=== PATIENT | female | born 1950 | race Caucasian/White ===

== ENCOUNTER 2018-05-08 10:49 | Inpatient (IN) | payer OTHER ==
--- NOTE | 2018-05-08 10:54 | PDOC ---
History of Present Illness <Tanja Richards - Last Filed: 05/08/18 14:25> - General History Source: Patient Exam Limitations: No Limitations - History of Present Illness Initial Comments: 05/08/18 11:23 67y F hx of htn, copd (uses o2 at home when needed), pulm nodules, sp nephrectomy, pulm fibrosis <?>, presents with complaint of sore throat and R sided chest pain x 5 days. Pt notes she had increased sore throat since tues, and deneis any fevers, or coughs, but will clear her throat for her soare throat. No n/v, diaprhoesis. pt does endorse intermitteht R sided chest pain that seems to be worse at night and worse when you push on it. last episode was last night. no new sob but pt states she has chronic sob, that is unchanged from baseline. Uses o2 when needed. pt denies any sick contacts or recent travel. pt dnies any abd pain, new back pain, headache, vision changes, numbness/ tingling/weakness. pt denies any runny nose, sneezing, body aches. cp is not worse with exertion. pt currently not in pain. PMD: Eloisa Miller Pulm: Tammi pt angi any drug use <Juan Mclean - Last Filed: 05/08/18 15:29> - General Chief Complaint: Sore Throat Stated Complaint: SORE THROAT & RIGHT CHEST PAIN Time Seen by Provider: 05/08/18 10:52 Past History <Tanja Richards - Last Filed: 05/08/18 14:25> - Past Medical History Cardiac Disorders: Yes (MURMUR) COPD: Yes HTN: Yes Kidney Stones: Yes - Surgical History Cholecystectomy: Yes - Suicide/Smoking/Psychosocial Hx Smoking Status: No Smoking History: Never smoked Have you smoked in the past 12 months: No Number of Cigarettes Smoked Daily: 0 Hx Alcohol Use: No Drug/Substance Use Hx: No Substance Use Type: None Hx Substance Use Treatment: No <Juan Mclean - Last Filed: 05/08/18 15:29> - Past Medical History Allergies/Adverse Reactions: Allergies Allergy/AdvReac Type Severity Reaction Status Date / Time No Known Allergies Allergy Verified 05/08/18 11:28 Home Medications: Ambulatory Orders Levothyroxine [Synthroid -] 88 mcg PO DAILY 08/10/12 Montelukast Na [Singulair -] 10 mg PO HS 08/10/12 Amlodipine Besylate [Norvasc -] 5 mg PO DAILY 05/08/18 Cetirizine HCl [Zyrtec -] 10 mg PO DAILY PRN 05/08/18 Dexlansoprazole [Dexilant] 60 mg PO DAILY 05/08/18 Famotidine [Pepcid] 20 mg PO DAILY 05/08/18 Gabapentin 600 mg PO BID 05/08/18 Meclizine HCl [Antivert -] 25 mg PO TID PRN 05/08/18 Mirabegron [Myrbetriq] 50 mg PO DAILY 05/08/18 Review of Systems - Review of Systems Able to Perform ROS?: Yes Comments:: 05/08/18 11:26 Constitutional - no reported Fever, Chills, HEENT: + sore throat no reported vision changes, Respiratory: no reported cough, sob, hemoptysis Cardiac: +chest pain, no reported palpitations, light headedness, leg swelling Abd/GI: no reported abd pain, nausea, vomiting, blood per rectum, melena, diarrhea : no reported dysuria, frequency, discharge Musculskelatal - no reported back pain, joint swelling skin - no reported bruising, erythema, rash neurological: no reported headache, numbness, focal weakness, tingling, ataxia, hematologic: no reported easy bruising, easy bleeding <Juan Mclean - Last Filed: 05/08/18 15:29> *Physical Exam - Vital Signs Last Vital Signs Temp Pulse Resp BP Pulse Ox 100.0 F H 89 22 115/79 93 L 05/08/18 14:00 05/08/18 14:00 05/08/18 14:00 05/08/18 14:00 05/08/18 14:00 <Tanja Richards - Last Filed: 05/08/18 14:25> - Physical Exam Comments: 05/08/18 11:27 GENERAL: The patient is awake, alert, and fully oriented, Nontoxic - in no acute distress. HEAD: Normocephalic, atraumatic. EYES: extraocular movements intact, sclera anicteric, conjunctiva clear. ENT: Normal voice, Moist mucous membranes. NECK: Normal range of motion, supple LUNGS/CHEST: Rales in the R lung, clear left lung, +reproducible chest pain on R chest HEART: Regular rate and rhythm, normal S1 and S2 without murmur, rub or gallop. ABDOMEN: Soft, nontender, No guarding, no rebound. No CVA tenderness EXTREMITIES: Normal range of motion, no edema. NEUROLOGICAL: No facial assymetry, Normal speech, PSYCH: Normal mood, normal affect. SKIN: Warm, Dry, normal turgor, <VinayJuan - Last Filed: 05/08/18 15:29> Heart Score/ECG Review - ECG Impressions Comment:: 05/08/18 12:09 Twelve-lead EKG was performed and reviewed by me. There is normal sinus rhythm with a normal rate. Rate of 82 Left anterior fascicular block Normal R wave progression no ST changes suggestive of acute ischemia <Juan Mclean - Last Filed: 05/08/18 15:29> ED Treatment Course - LABORATORY CBC & Chemistry Diagram: 05/08/18 12:30 05/08/18 12:30 - ADDITIONAL ORDERS Additional order review: Laboratory Results 05/08/18 05/08/18 05/08/18 12:30 12:30 12:30 PT with INR 13.9 H INR 1.25 H PTT (Actin FS) 23.9 L VBG pH 7.39 POC VBG pCO2 39.9 POC VBG pO2 22.1 L Mixed VBG HCO3 24.1 Sodium Potassium Chloride Carbon Dioxide Anion Gap BUN Creatinine Creat Clearance w eGFR Random Glucose Lactic Acid 1.8 Calcium Total Bilirubin AST ALT Alkaline Phosphatase Creatine Kinase Troponin I Total Protein Albumin 05/08/18 05/08/18 12:30 12:30 PT with INR INR PTT (Actin FS) VBG pH POC VBG pCO2 POC VBG pO2 Mixed VBG HCO3 Sodium 136 Potassium 4.2 Chloride 104 Carbon Dioxide 24 Anion Gap 8 BUN 14 Creatinine 1.1 Creat Clearance w eGFR 49.69 Random Glucose 96 Lactic Acid Calcium 8.8 Total Bilirubin 1.0 AST 18 ALT 11 Alkaline Phosphatase 84 Creatine Kinase 42 Troponin I < 0.03 Total Protein 6.6 Albumin 3.0 L 05/08/18 11:22 Group A Strep Rapid Antigen - Final Throat 05/08/18 12:30 RBC 4.53 MCV 83.2 MCHC 31.6 L RDW 16.9 H MPV 9.4 Neutrophils % 64.6 D Lymphocytes % 23.0 D Monocytes % 11.4 H Eosinophils % 0.6 D Basophils % 0.4 - Medications Given in the ED: ED Medications Discontinued Medications Generic Name Dose Route Start Last Admin Trade Name Cynthia PRN Reason Stop Dose Admin Acetaminophen 650 mg 05/08/18 13:59 05/08/18 14:00 Tylenol - PO 05/08/18 14:00 650 mg ONCE ONE Administration Azithromycin 500 mg/ Dextrose 250 mls @ 250 mls/hr 05/08/18 12:13 05/08/18 13 :30 IVPB 05/08/18 13:12 250 mls/hr ONCE ONE Administration Ceftriaxone Sodium 1 gm/ 50 mls @ 100 mls/hr 05/08/18 12:13 05/08/18 12:45 Dextrose IVPB 05/08/18 12:42 100 mls/hr ONCE ONE Administration <Tanja Richards - Last Filed: 05/08/18 14:25> - LABORATORY CBC & Chemistry Diagram: 05/08/18 12:30 05/08/18 12:30 <Juan Mclean - Last Filed: 05/08/18 15:29> Medical Decision Making - Medical Decision Making Case discussed with Dr. Triplett at 14:24. <Tanja Richards - Last Filed: 05/08/18 14:25> - Medical Decision Making 05/08/18 11:28 ddx viral vs strep pharyngitis, will send rapid strep cp - will r/o acs, pna, possible costochondritis will ck ekg, cxr, trops, labs 05/08/18 12:12 pt noted febrile here to 100.7 cxr noted for R perihiular infiltrates, her cxr 3 years ago was clear suspect pna - pt vitals also noted febrile - sepsis orderset obtained 05/08/18 14:28 lab reviewed - unremarkable will admit for further management of her pna case dw. dr. Triplett - states he doesnt cover ortega requests hospitalist service hospitalist service notified via [employer] 05/08/18 15:26 case dw. PRINCESS King agree with admission for further management stable for med surg Case discussed in detail with admitting physician including history, physical exam and ancillary studies. Admitting physician has assumed care for the patient, will follow all pending diagnostics and will complete the evaluation and treatment. <Juan Mclean - Last Filed: 05/08/18 15:29> *DC/Admit/Observation/Transfer - Attestations Scribe Attestion: Documentation prepared by Tanja Richards, acting as medical support specialist for Juan Mclean MD. <Tanja Richards - Last Filed: 05/08/18 14:25> - Discharge Dispostion Decision to Admit order: Yes <Juan Mclean - Last Filed: 05/08/18 15:29> Diagnosis at time of Disposition: Pneumonia Qualifiers: Pneumonia type: due to unspecified organism Laterality: right Lung location: unspecified part of lung Qualified Code(s): J18.9 - Pneumonia, unspecified organism - Discharge Dispostion Condition at time of disposition: Good - Referrals Referrals: Eloisa Miller MD [Primary Care Provider] -
[2018-05-08] MEDS ORDERED: AZITHROMYCIN IVPB 500 MG in DEXTROSE 5%-WATER - 250 ML IVPB ONE (12:13)
[2018-05-08] MEDS ORDERED: CEFTRIAXONE 1 GM in DEXTROSE 5%-WATER - 50 ML IVPB ONE (12:13)
[2018-05-08] MEDS ORDERED: cefTRIAXone SODIUM 1 GM VIAL ONE (12:41)
[2018-05-08] MEDS ORDERED: AZITHROMYCIN 500 MG VIAL IVPB ONE (12:41)
[2018-05-08 13:19] LABS: ALK PHOS 84 U/L (32-92); ANION GAP 8 (8-16); BLOOD UREA NITROGEN 14 mg/dl (7-18); CALCIUM 8.8 mg/dl (8.4-10.2); CHLORIDE 104 mmol/L (98-107); CO2 24 mmol/L (22-28); CREATININE 1.1 mg/dl (0.6-1.3); GLUCOSE,RANDOM 96 mg/dl (74-106); POTASSIUM 4.2 mmol/L (3.5-5.1); SGOT/AST 18 U/L (10-42); SGPT/ALT 11 U/L (10-40); SODIUM 136 mmol/L (136-145); TOT PROT 6.6 g/dl (6.4-8.3)
[2018-05-08 13:36] LABS: ACTIVATED PTT 23.9 SECONDS (25.2-36.5)
[2018-05-08 13:41] LABS: INR 1.25 (0.82-1.09); PROTHROMBIN TIME (PATIENT) 13.9 SEC (10.2-13.0)
[2018-05-08 13:50] LABS: BASO % 0.4 % (0-2.0); EOS % 0.6 % (0-4.5); HEMATOCRIT 37.7 % (32.4-45.2); HEMOGLOBIN 11.9 GM/dL (10.7-15.3); MCH 26.3 pg (25.7-33.7); MCHC 31.6 g/dl (32.0-36.0); MEAN CELL VOLUME 83.2 fl (80-96); MEAN PLT VOLUME 9.4 fl (7.5-11.1); MONO % 11.4 % (3.8-10.2); NEUT % 64.6 % (42.8-82.8); PLATELET COUNT 269 K/MM3 (134-434); RBC 4.53 M/mm3 (3.60-5.2); RDW 16.9 % (11.6-15.6); WHITE BLOOD COUNT 9.3 K/mm3 (4.0-10.0)
[2018-05-08 13:56] LABS: VENOUS PH 7.39 (7.32-7.42)
[2018-05-08 13:57] LABS: VENOUS PC02 39.9 mmHg (38-52); VENOUS PO2 22.1 mmHg (28-48)
[2018-05-08] MEDS ORDERED: ACETAMINOPHEN 325 MG TABLET (FP) PO ONE (13:59)
[2018-05-08] MEDS ORDERED: ACETAMINOPHEN 325 MG TABLET (FP) ONE (14:00)
--- NOTE | 2018-05-08 15:27 | HP ---
CHIEF COMPLAINT: Sore throat PCP: Dr. Miller Pulmonary: Dr. Cadena HISTORY OF PRESENT ILLNESS: This is a 67-year-old female with HTN, COPD (on home O2 prn, infrequently), pulmonary nodules, pulmonary fibrosis, hypothyroidism, and nephrectomy at [facility] 2005 (for "suspicious lesions") who presented to the ED with five days of subjective fever, sore throat, and right- sided chest pain. ER course was notable for: (1) T 100.7 and SpO2 87% on RA per verbal report from ER MD (2) CXR: Patchy right-sided infiltrate (3) Rapid strep negative (4) EKG SR with PACs, 82bpm; trop neg x 1 Recent Travel: None PAST MEDICAL HISTORY: As above PAST SURGICAL HISTORY: Nephrectomy, cholecystectomy, tubal ligation, gastric bypass, abdominoplasty Social History: Not working. Lives with and daughter. From , [place]. Smoking: Never smoker, reports significant second-hand smoke from and her parents Alcohol: None Drugs: None Family History: Non-contributory to this admission Allergies No Known Allergies Allergy (Verified 05/08/18 11:28) HOME MEDICATIONS: Home Medications Medication Instructions Recorded Levothyroxine [Synthroid -] 88 mcg PO DAILY 08/10/12 Montelukast Na [Singulair -] 10 mg PO HS 08/10/12 Amlodipine Besylate [Norvasc -] 5 mg PO DAILY 05/08/18 Cetirizine HCl [Zyrtec -] 10 mg PO DAILY PRN 05/08/18 Dexlansoprazole [Dexilant] 60 mg PO DAILY 05/08/18 Famotidine [Pepcid] 20 mg PO DAILY 05/08/18 Gabapentin 600 mg PO BID 05/08/18 Meclizine HCl [Antivert -] 25 mg PO TID PRN 05/08/18 Mirabegron [Myrbetriq] 50 mg PO DAILY 05/08/18 REVIEW OF SYSTEMS CONSTITUTIONAL: Subjective fever, malaise Absent: fever, chills, diaphoresis, generalized weakness, malaise, loss of appetite, weight change HEENT: Throat pain Absent: rhinorrhea, nasal congestion, throat swelling, difficulty swallowing, mouth swelling, ear pain, eye pain, visual changes CARDIOVASCULAR: Right-sided chest pain with coughing or deep breathing, none at rest. Absent: syncope, palpitations, irregular heart rate, lightheadedness, peripheral edema RESPIRATORY: Absent: cough, shortness of breath, dyspnea with exertion, orthopnea, wheezing, stridor, hemoptysis GASTROINTESTINAL: Absent: abdominal pain, abdominal distension, nausea, vomiting, diarrhea, constipation, melena, hematochezia GENITOURINARY: Absent: dysuria, frequency, urgency, hesitancy, hematuria, flank pain, genital pain MUSCULOSKELETAL: Absent: myalgia, arthralgia, joint swelling, back pain, neck pain SKIN: Absent: rash, itching, pallor HEMATOLOGIC/IMMUNOLOGIC: Absent: easy bleeding, easy bruising, lymphadenopathy, frequent infections ENDOCRINE: Absent: unexplained weight gain, unexplained weight loss, heat intolerance, cold intolerance NEUROLOGIC: Absent: headache, focal weakness or paresthesias, dizziness, unsteady gait, seizure, mental status changes, bladder or bowel incontinence PSYCHIATRIC: Absent: anxiety, depression, suicidal or homicidal ideation, hallucinations. PHYSICAL EXAMINATION Vital Signs - 24 hr 05/08/18 05/08/18 05/08/18 10:50 12:10 14:00 Temperature 100.7 F H 100.0 F H Pulse Rate 90 Pulse Rate [ 88 89 Apical] Respiratory 22 21 22 Rate Blood Pressure 116/80 Blood Pressure 116/67 115/79 [Right Arm] O2 Sat by Pulse 95 94 L 93 L Oximetry (%) 05/08/18 14:30 Temperature Pulse Rate Pulse Rate [ 91 H Apical] Respiratory 23 Rate Blood Pressure Blood Pressure 113/72 [Right Arm] O2 Sat by Pulse 95 Oximetry (%) GENERAL: Awake, alert, and fully oriented, in no acute distress. HEAD: Normal with no signs of trauma. EYES: Pupils equal, round and reactive to light, extraocular movements intact, sclera anicteric, conjunctiva clear. No lid lag. EARS, NOSE, THROAT: Ears normal, nares patent, oropharynx clear without exudates. Moist mucous membranes. NECK: Normal range of motion, supple without lymphadenopathy, JVD, or masses. LUNGS: Breath sounds diminished right base. No wheezes, and no crackles. No accessory muscle use. HEART: Irregular rhythm, normal S1 and S2 without murmur, rub or gallop. ABDOMEN: Soft, nontender, not distended, normoactive bowel sounds, no guarding, no rebound, no masses. No hepatomegaly or splenomegaly. MUSCULOSKELETAL: Normal range of motion at all joints. No bony deformities or tenderness. No CVA tenderness. UPPER EXTREMITIES: 2+ pulses, warm, well-perfused. No cyanosis. No clubbing. No peripheral edema. LOWER EXTREMITIES: 2+ pulses, warm, well-perfused. No calf tenderness. No peripheral edema. NEUROLOGICAL: Cranial nerves II-XII intact. Normal speech. Normal gait. PSYCHIATRIC: Cooperative. Good eye contact. Appropriate mood and affect. SKIN: Warm, dry, normal turgor, no rashes or lesions noted, normal capillary refill. Laboratory Results - last 24 hr 05/08/18 05/08/18 05/08/18 12:30 12:30 12:30 WBC 9.3 D RBC 4.53 Hgb 11.9 Hct 37.7 MCV 83.2 MCH 26.3 MCHC 31.6 L RDW 16.9 H Plt Count 269 D MPV 9.4 Absolute Neuts (auto) 6.0 Neutrophils % 64.6 D Lymphocytes % 23.0 D Monocytes % 11.4 H Eosinophils % 0.6 D Basophils % 0.4 Nucleated RBC % 0 PT with INR INR PTT (Actin FS) VBG pH POC VBG pCO2 POC VBG pO2 Mixed VBG HCO3 Sodium 136 Potassium 4.2 Chloride 104 Carbon Dioxide 24 Anion Gap 8 BUN 14 Creatinine 1.1 Creat Clearance w eGFR 49.69 Random Glucose 96 Lactic Acid Calcium 8.8 Total Bilirubin 1.0 AST 18 ALT 11 Alkaline Phosphatase 84 Creatine Kinase 42 Troponin I < 0.03 Total Protein 6.6 Albumin 3.0 L 05/08/18 05/08/18 05/08/18 12:30 12:30 12:30 WBC RBC Hgb Hct MCV MCH MCHC RDW Plt Count MPV Absolute Neuts (auto) Neutrophils % Lymphocytes % Monocytes % Eosinophils % Basophils % Nucleated RBC % PT with INR 13.9 H INR 1.25 H PTT (Actin FS) 23.9 L VBG pH 7.39 POC VBG pCO2 39.9 POC VBG pO2 22.1 L Mixed VBG HCO3 24.1 Sodium Potassium Chloride Carbon Dioxide Anion Gap BUN Creatinine Creat Clearance w eGFR Random Glucose Lactic Acid 1.8 Calcium Total Bilirubin AST ALT Alkaline Phosphatase Creatine Kinase Troponin I Total Protein Albumin ASSESSMENT/PLAN: 67-year-old female with community-acquired pneumonia and hypoxia/increased O2 requirement. Problem List - Problem (1) Community acquired pneumonia Assessment/Plan: -Blood cultures pending -Ceftriaxone/Azithromycin -Gentle IVF -Urine antigens for PNA -Albuterol neb prn wheezing (non currently) Code(s): J18.9 - PNEUMONIA, UNSPECIFIED ORGANISM (2) Hypoxia Assessment/Plan: -2L O2 via nc (has home O2 if needed) -Consider non-con CT to better characterize infiltrate, especially given pulm fibrosis/nodules -Pulmonary evaluation Code(s): R09.02 - HYPOXEMIA (3) Hypothyroidism Assessment/Plan: -Continue levothyroxine Code(s): E03.9 - HYPOTHYROIDISM, UNSPECIFIED (4) Hypertension Assessment/Plan: -At goal -Continue Norvasc -Low sodium diet Code(s): I10 - ESSENTIAL (PRIMARY) HYPERTENSION (5) DVT prophylaxis Assessment/Plan: -Moderate risk -Lovenox 40mg sq daily -Encourage ambulation Code(s): [id number] - Visit type - Emergency Visit Emergency Visit: Yes ED Registration Date: 05/08/18 Care time: The patient presented to the Emergency Department on the above date and was hospitalized for further evaluation of their emergent condition. - New Patient This patient is new to me today: Yes Date on this admission: 05/08/18 - Critical Care Critical Care patient: No Hospitalist Screening - Colonoscopy Questionnaire Colonoscopy Questionnaire: Colonoscopy Questionnaire - Patient: 50 - 75 years old and never had a screening colonoscopy: No History of colon or rectal polyps, or CA: No History of IBD, Crohn's disease or UC: No History of abdominal radiation therapy as a child: No - Relative: 1 with colon or rectal CA, or polyps at age 60 or younger: No Colon or rectal CA diagnosed at age 45 or younger: No Multiple relatives with colon or rectal CA: No - Outcome: Screening Result: Negative Screen
[2018-05-08 15:31] LABS: PH,URINE 5.5 (4.5-8); URINE APPEARANCE Clear; URINE BILIRUBIN 1+ (NEGATIVE); URINE GLUCOSE (UA) Negative (NEGATIVE); URINE KETONE 1+ (NEGATIVE); URINE NITRITE Negative (NEGATIVE); URINE UROBILINOGEN >=8.0 E.U./dl (0.2-1.0)
[2018-05-08 15:36] LABS: URINE LEUK ESTERASE 1+ (NEGATIVE); URINE PROTEIN 2+ (NEGATIVE)
[2018-05-08] MEDS ORDERED: DOCUSATE SODIUM 100 MG CAPSULE (FP) PO PRN (15:45)
[2018-05-08] MEDS: SODIUM CHLORIDE 1,000 ML IV SCH (15:50)
[2018-05-08] MEDS ORDERED: ACETAMINOPHEN 325 MG TABLET (FP) PO PRN (16:02)
[2018-05-08] MEDS ORDERED: MECLIZINE HCL 25 MG TABLET (FP) PO PRN (16:05)
[2018-05-08] MEDS ORDERED: PATIENT'S OWN MEDICATION (NON-FORMULARY) (Cetirizine Hcl 10 MG) PO PRN (16:05)
[2018-05-08] MEDS ORDERED: ALBUTEROL SO4 0.083% IH SOL 2.5 MG/3 ML VIAL.NEB. NEB PRN (16:06)
[2018-05-08 16:10] LABS: URINE RBC 0-2 /hpf (0-3)
[2018-05-08 16:11] LABS: URINE COLOR YELLOW
[2018-05-08 16:20] VITALS: BMI 35.9
--- NOTE | 2018-05-08 19:28 | EKG ---
Test Reason : Blood Pressure : / mmHG Vent. Rate : 082 BPM Atrial Rate : 082 BPM P-R Int : 150 ms QRS Dur : 084 ms QT Int : 378 ms P-R-T Axes : 049 -63 039 degrees QTc Int : 441 ms SINUS RHYTHM WITH PREMATURE ATRIAL COMPLEXES LEFT ANTERIOR FASCICULAR BLOCK SEPTAL INFARCT (CITED ON OR BEFORE 08-MAY-2018) ABNORMAL ECG WHEN COMPARED WITH ECG OF 01-NOV-2014 14:58, PREMATURE ATRIAL COMPLEXES ARE NOW PRESENT [place] INTERVAL HAS DECREASED QUESTIONABLE CHANGE IN INITIAL FORCES OF SEPTAL LEADS NONSPECIFIC T WAVE ABNORMALITY NO LONGER EVIDENT IN INFERIOR LEADS Confirmed by TOMMIE CARRILLO, SUMAN ([id number]) on 05/08/2018 7:28:19 PM Referred By: EMIR GLYNN Confirmed By:SUMAN REILLY MD
[2018-05-08] MEDS: GABAPENTIN 300 MG CAPSULE (FP) PO SCH (21:27)
[2018-05-08] MEDS: MONTELUKAST NA 10 MG TABLET PO SCH (21:27)
[2018-05-08] MEDS ORDERED: diphenhydrAMINE HCL 25 MG CAPSULE (FP) PO PRN (22:00)
[2018-05-09] MEDS: LEVOTHYROXINE NA 88 MCG TABLET (FP) PO SCH (06:41)
[2018-05-09 07:30] LABS: BASO % 1.1 % (0-2.0); EOS % 2.8 % (0-4.5); HEMATOCRIT 33.5 % (32.4-45.2); HEMOGLOBIN 10.9 GM/dl (10.7-15.3); MCH 27.1 pg (25.7-33.7); MCHC 32.5 g/dl (32.0-36.0); MEAN CELL VOLUME 83.4 fl (80-96); MEAN PLT VOLUME 8.9 fl (7.5-11.1); MONO % 9.3 % (3.8-10.2); NEUT % 63.8 % (42.8-82.8); PLATELET COUNT 228 K/MM3 (134-434); RBC 4.01 M/mm3 (3.60-5.2); RDW 16.3 % (11.6-15.6); WHITE BLOOD COUNT 8.1 K/mm3 (4.0-10.8)
--- NOTE | 2018-05-09 07:47 | PN ---
Physical Exam: SUBJECTIVE: Patient seen and examined, resting comfortably in bed, reports improvement in shortness of breath denies any chest pain. OBJECTIVE: patient is a 67-year-old female with a past medical history of hypertension, COPD (on home O2 PRN), pulmonary nodules, pulmonary fibrosis, hypothyroidism, and nephrectomy at [facility] 2005 (for "suspicious lesions"). Patient was admitted from the emergency department for right lower lobe pneumonia Vital Signs Period Temp Pulse Resp BP Sys/Cook Pulse Ox Last 24 Hr 98.4 F-100.7 F 73-93 18-23 101-116/40-80 89-98 GENERAL: The patient is awake, alert, and fully oriented, in no acute distress. HEAD: Normal with no signs of trauma. EYES: PERRL, extraocular movements intact, sclera anicteric, conjunctiva clear. No ptosis. ENT: Ears normal, nares patent, oropharynx clear without exudates, moist mucous membranes. NECK: Trachea midline, full range of motion, supple. LUNGS: Breath sounds equal, bilateral crackles to bases, clear to apexes, no wheezes, no crackles, no accessory muscle use. HEART: Regular rate and rhythm, S1, S2 without murmur, rub or gallop. ABDOMEN: Soft, nontender, nondistended, normoactive bowel sounds, no guarding, no rebound, no hepatosplenomegaly, no masses. EXTREMITIES: 2+ pulses, warm, well-perfused, no edema. NEUROLOGICAL: Cranial nerves II through XII grossly intact. Normal speech, gait not observed. PSYCH: Normal mood, normal affect. SKIN: Warm, dry, normal turgor, no rashes or lesions noted Laboratory Results - last 24 hr 05/08/18 05/08/18 05/08/18 12:30 12:30 12:30 WBC 9.3 D RBC 4.53 Hgb 11.9 Hct 37.7 MCV 83.2 MCH 26.3 MCHC 31.6 L RDW 16.9 H Plt Count 269 D MPV 9.4 Absolute Neuts (auto) 6.0 Neutrophils % 64.6 D Lymphocytes % 23.0 D Monocytes % 11.4 H Eosinophils % 0.6 D Basophils % 0.4 Nucleated RBC % 0 PT with INR INR PTT (Actin FS) VBG pH POC VBG pCO2 POC VBG pO2 Mixed VBG HCO3 Sodium 136 Potassium 4.2 Chloride 104 Carbon Dioxide 24 Anion Gap 8 BUN 14 Creatinine 1.1 Creat Clearance w eGFR 49.69 Random Glucose 96 Lactic Acid Calcium 8.8 Total Bilirubin 1.0 AST 18 ALT 11 Alkaline Phosphatase 84 Creatine Kinase 42 Troponin I < 0.03 Total Protein 6.6 Albumin 3.0 L Urine Color Urine Appearance Urine pH Ur Specific [place] Urine Protein Urine Glucose (UA) Urine Ketones Urine Blood Urine Nitrite Urine Bilirubin Urine Urobilinogen Ur Leukocyte Esterase Urine RBC Urine WBC Ur Epithelial Cells 05/08/18 05/08/18 05/08/18 12:30 12:30 12:30 WBC RBC Hgb Hct MCV MCH MCHC RDW Plt Count MPV Absolute Neuts (auto) Neutrophils % Lymphocytes % Monocytes % Eosinophils % Basophils % Nucleated RBC % PT with INR 13.9 H INR 1.25 H PTT (Actin FS) 23.9 L VBG pH 7.39 POC VBG pCO2 39.9 POC VBG pO2 22.1 L Mixed VBG HCO3 24.1 Sodium Potassium Chloride Carbon Dioxide Anion Gap BUN Creatinine Creat Clearance w eGFR Random Glucose Lactic Acid 1.8 Calcium Total Bilirubin AST ALT Alkaline Phosphatase Creatine Kinase Troponin I Total Protein Albumin Urine Color Urine Appearance Urine pH Ur Specific [place] Urine Protein Urine Glucose (UA) Urine Ketones Urine Blood Urine Nitrite Urine Bilirubin Urine Urobilinogen Ur Leukocyte Esterase Urine RBC Urine WBC Ur Epithelial Cells 05/08/18 05/09/18 15:24 07:28 WBC 8.1 RBC 4.01 Hgb 10.9 Hct 33.5 MCV 83.4 MCH 27.1 MCHC 32.5 RDW 16.3 H Plt Count 228 MPV 8.9 Absolute Neuts (auto) 5.1 Neutrophils % 63.8 Lymphocytes % 23.0 Monocytes % 9.3 Eosinophils % 2.8 Basophils % 1.1 Nucleated RBC % PT with INR INR PTT (Actin FS) VBG pH POC VBG pCO2 POC VBG pO2 Mixed VBG HCO3 Sodium Potassium Chloride Carbon Dioxide Anion Gap BUN Creatinine Creat Clearance w eGFR Random Glucose Lactic Acid Calcium Total Bilirubin AST ALT Alkaline Phosphatase Creatine Kinase Troponin I Total Protein Albumin Urine Color Yellow Urine Appearance Clear Urine pH 5.5 Ur Specific [place] 1.015 Urine Protein 2+ H Urine Glucose (UA) Negative Urine Ketones 1+ H Urine Blood Negative Urine Nitrite Negative Urine Bilirubin 1+ H Urine Urobilinogen >=8.0 e.u./dl H Ur Leukocyte Esterase 1+ H Urine RBC 0-2 Urine WBC 10-15 Ur Epithelial Cells 3-5 Active Medications Generic Name Dose Route Start Last Admin Trade Name Freq PRN Reason Stop Dose Admin Acetaminophen 650 mg 05/08/18 16:02 05/08/18 21:27 Tylenol - PO 650 mg Q4H PRN Administration FEVER Albuterol Sulfate 1 amp 05/08/18 16:06 Ventolin 0.083% Nebulizer Soln - NEB Q6H PRN SHORT OF BREATH/WHEEZING Amlodipine Besylate 5 mg 05/09/18 10:00 Norvasc - PO DAILY MARIA DEL CARMEN Diphenhydramine HCl 25 mg 05/08/18 22:00 Benadryl - PO HS PRN INSOMNIA Docusate Sodium 100 mg 05/08/18 15:45 Colace - PO Q8H PRN CONSTIPATION Enoxaparin Sodium 40 mg 05/09/18 10:00 Lovenox - SQ DAILY MARIA DEL CARMEN Famotidine 20 mg 05/09/18 10:00 Pepcid - PO DAILY MARIA DEL CARMEN Gabapentin 600 mg 05/08/18 22:00 05/08/18 21:27 Neurontin - PO 600 mg BID MARIA DEL CARMEN Administration Sodium Chloride 1,000 mls @ 42 mls/hr 05/08/18 15:45 05/08/18 15:50 Normal Saline - IV 42 mls/hr ASDIR MARIA DEL CARMEN Administration Azithromycin 250 mls @ 250 mls/hr 05/09/18 10:00 Zithromax 500mg Ivpb (Pre-Docked) IVPB DAILY [facility] Ceftriaxone Sodium 50 mls @ 200 mls/hr 05/09/18 10:00 Ceftriaxone 1 Gm-D5w Bag IVPB DAILY [facility] Protocol Levothyroxine Sodium 88 mcg 05/09/18 07:00 05/09/18 06:41 Synthroid - PO 88 mcg ACBK MARIA DEL CARMEN Administration Loratadine 10 mg 05/09/18 10:00 Claritin - PO DAILY MARIA DEL CARMEN Meclizine HCl 25 mg 05/08/18 16:05 Antivert - PO Q8H PRN VERTIGO Montelukast Sodium 10 mg 05/08/18 22:00 05/08/18 21:27 Singulair - PO 10 mg HS MARIA DEL CARMEN Administration Non-Formulary Medication 50 mg 05/09/18 10:00 Mirabegron [Myrbetriq] PO DAILY MARIA DEL CARMEN Pantoprazole Sodium 40 mg 05/09/18 10:00 Protonix - PO DAILY [facility] Microbiology 05/08/18 11:22 Throat Group A Strep Rapid Antigen - Final imaging Chest x-ray: Patchy right infiltrate ASSESSMENT/PLAN: 1) pulm community acquired pneumonia - continue rocephin and Zithromax, pending blood cultures and urine antigens - incentive spirometer - SpO2 above 92% with supplemental O2 as needed. - Monitor WBC and fever trend no leukocytosis noted, low grade temp noted copd - albuterol nebulizer prn And peak flow - ct of chest hx of Pulmonary fibrosis and nodules - appreciate pulmonary input 2) cardiovascular hypertension - continue norvasc b/p at goal 3) endo hypothyroidism - continue levothryoxine f/e/n - low sodium diet - replete Electrolytes when necessary PPX - lovenox - pepcid dispo: pt requires inpatient admission Visit type - Emergency Visit Emergency Visit: Yes ED Registration Date: 05/08/18 Care time: The patient presented to the Emergency Department on the above date and was hospitalized for further evaluation of their emergent condition. - New Patient This patient is new to me today: Yes Date on this admission: 05/09/18 - Critical Care Critical Care patient: No - Discharge Referral Physician Referral: Dano Pizano MD ([facility])
[2018-05-09 07:51] LABS: ALBUMIN 2.4 g/dl (3.5-5.0); ALK PHOS 69 U/L (32-92); ANION GAP 7 (8-16); BILIRUBIN,TOTAL 0.7 mg/dl (0.2-1.0); BLOOD UREA NITROGEN 11 mg/dl (7-18); CALCIUM 8.3 mg/dl (8.4-10.2); CHLORIDE 109 mmol/L (98-107); CO2 23 mmol/L (22-28); GLUCOSE,RANDOM 90 mg/dl (74-106); POTASSIUM 4.7 mmol/L (3.5-5.1); SGOT/AST 14 U/L (10-42); SGPT/ALT 11 U/L (10-40); SODIUM 139 mmol/L (136-145); TOT PROT 5.5 g/dl (6.4-8.3)
[2018-05-09] MEDS: CEFTRIAXONE 1 G/50 ML PREMIX 50 ML IVPB SCH (09:15)
[2018-05-09] MEDS: LORATADINE 10 MG TABLET PO SCH (09:16)
[2018-05-09] MEDS: amLODIPine BESYLATE 5 MG TABLET (FP) PO SCH (09:16)
[2018-05-09] MEDS: ENOXAPARIN NA (PORCINE) 40 MG/0.4 ML DISP.SYRIN SQ SCH (09:16)
[2018-05-09] MEDS: AZITHROMYCIN IVPB 250 ML IVPB SCH (09:16)
[2018-05-09] MEDS: GABAPENTIN 300 MG CAPSULE (FP) PO SCH ×2 (09:16→21:43)
[2018-05-09] MEDS: PANTOPRAZOLE 40 MG TABLET (FP) PO SCH (09:16)
[2018-05-09] MEDS: FAMOTIDINE 20 MG TABLET PO SCH (09:16)
[2018-05-09] MEDS ORDERED: PATIENT'S OWN MEDICATION (NON-FORMULARY) (Mirabegron [Myrbetriq] 50 MG) PO SCH (10:00)
[2018-05-09] MEDS ORDERED: PATIENT'S OWN MEDICATION (NON-FORMULARY) (Dexlansoprazole [Dexilant] 60 MG) PO SCH (10:00)
[2018-05-09] MEDS: SODIUM CHLORIDE 1,000 ML IV SCH (16:59)
--- NOTE | 2018-05-09 17:26 | CON.PULM ---
Consult Consult Specialty:: PULMONARY Referred by:: [facility] Reason for Consultation:: SOB/COUGH - History of Present Illness Chief Complaint: SOB/COUGH History of Present Illness: 67y F hx of htn, copd (uses o2 at home when needed), pulm nodules, sp nephrectomy, pulm fibrosis <?>, presents with complaint of sore throat and R sided chest pain x 5 days. Pt notes she had increased sore throat since tues, and deneis any fevers, or coughs, but will clear her throat for her soare throat. No n/v, diaprhoesis. pt does endorse intermitteht R sided chest pain that seems to be worse at night and worse when you push on it. last episode was last night. no new sob but pt states she has chronic sob, that is unchanged from baseline. Uses o2 when needed. pt denies any sick contacts or recent travel. pt dnies any abd pain, new back pain, headache, vision changes, numbness/ tingling/weakness. pt denies any runny nose, sneezing, body aches. cp is not worse with exertion. pt currently not in pain. - History Source History Provided By: Patient, Family Member, Medical Record Limitations to Obtaining History: No Limitations - Past Medical History DIGITAL MARKETING SPECIALIST: No: Alzheimer's Cardio/Vascular: Yes: AFIB, CHF, HTN Pulmonary: Yes: COPD, O2 Dependent, Pulmonary Fibrosis, Other (PULMONARY NODULES ) Gastrointestinal: No: Ascites Hepatobiliary: No: Cirrhosis Renal/: No: Renal Failure Reproductive: Yes: Postmenopausal ...: No Heme/Onc: Yes: Anemia Infectious Disease: No: AIDS Musculoskeletal: Yes: Osteoarthritis - Alcohol/Substance Use Hx Alcohol Use: No History of Substance Use: reports: None - Smoking History Smoking history: Never smoked Have you smoked in the past 12 months: No Aproximately how many cigarettes per day: 0 - Social History ADL: Independent Place of : Other History of Recent Travel: No Home Medications - Allergies Allergies/Adverse Reactions: Allergies Allergy/AdvReac Type Severity Reaction Status Date / Time peaches Allergy Severe Difficulty Uncoded 05/08/18 17:03 Breathing - Home Medications Home Medications: Ambulatory Orders Levothyroxine [Synthroid -] 88 mcg PO DAILY 08/10/12 Montelukast Na [Singulair -] 10 mg PO HS 08/10/12 Amlodipine Besylate [Norvasc -] 5 mg PO DAILY 05/08/18 Cetirizine HCl [Zyrtec -] 10 mg PO DAILY PRN 05/08/18 Dexlansoprazole [Dexilant] 60 mg PO DAILY 05/08/18 Famotidine [Pepcid] 20 mg PO DAILY 05/08/18 Gabapentin 600 mg PO BID 05/08/18 Meclizine HCl [Antivert -] 25 mg PO TID PRN 05/08/18 Mirabegron [Myrbetriq] 50 mg PO DAILY 05/08/18 Family Disease History - Family Disease History Family History: Unremarkable Review of Systems - Review of Systems Constitutional: denies: Fever Eyes: denies: Blurred Vision HENT: denies: Difficult Swallowing Neck: denies: Decreased ROM Cardiovascular: denies: Chest Pain Respiratory: reports: Cough, SOB on Exertion Gastrointestinal: denies: Abdominal Pain Genitourinary: denies: Burning Musculoskeletal: reports: No Symptoms Integumentary: reports: No Symptoms Neurological: reports: No Symptoms Physical Exam Vital Sings: Vital Signs Temperature 99 F 05/09/18 13:48 Pulse Rate 86 05/09/18 13:48 Respiratory Rate 18 05/09/18 13:48 Blood Pressure 105/67 05/09/18 13:48 O2 Sat by Pulse Oximetry (%) 96 05/09/18 09:00 Constitutional: Yes: Calm Eyes: Yes: EOM Intact HENT: Yes: Normocephalic Neck: Yes: Trachea Midline Cardiovascular: Yes: Pulse Irregular, S1, S2 Respiratory: Yes: Rales, Rhonchi ...Inspection: Yes: WNL Gastrointestinal: Yes: Normal Bowel Sounds, Soft Breast(s): Yes: WNL Musculoskeletal: Yes: WNL Extremities: Yes: WNL Edema: LLE: Trace, RLE: Trace Integumentary: Yes: WNL Neurological: Yes: Alert Labs: CBC, BMP 05/09/18 07:28 05/09/18 07:20 REST REVIEWED Imaging - Results Chest X-ray: Report Reviewed, Image Reviewed Cat Scan: Report Reviewed, Image Reviewed EKG: Report Reviewed Problem List - Problems (1) IPF (idiopathic pulmonary fibrosis) Code(s): J84.112 - IDIOPATHIC PULMONARY FIBROSIS (2) Community acquired pneumonia Code(s): J18.9 - PNEUMONIA, UNSPECIFIED ORGANISM (3) DVT prophylaxis Code(s): [id number] - (4) Hypertension Code(s): I10 - ESSENTIAL (PRIMARY) HYPERTENSION (5) Hypoxia Code(s): R09.02 - HYPOXEMIA (6) Pneumonia Code(s): J18.9 - PNEUMONIA, UNSPECIFIED ORGANISM Qualifiers: Pneumonia type: due to unspecified organism Laterality: right Lung location: unspecified part of lung Qualified Code(s): J18.9 - Pneumonia, unspecified organism (7) Chest pain Code(s): R07.9 - CHEST PAIN, UNSPECIFIED Assessment/Plan DIFFICULT TO R/O COMMUNITY ACQUIRED PNEUMONIA GIVEN BASELINE ABNORMALITIES PRESENT ON CT CHEST AGREE WITH EMPIRIC ANTIBIOTIC COVERAHGE/BRONCHODILATORS/O2 TO KEEP SAT >90%/NO NEED FOR SYSTEMIC STEROIDS AT THIS TIME/CHESK PANCULTURE/ WILL NEED OUTPATIENT FOLLOW UP OF SPICULATED LUNG NODULES WILL FOLLOW WITH YOU THANK YOU Carolyn RYAN MD
[2018-05-09] MEDS: MONTELUKAST NA 10 MG TABLET PO SCH (21:43)
[2018-05-10] MEDS: LEVOTHYROXINE NA 88 MCG TABLET (FP) PO SCH (06:21)
[2018-05-10 06:46] VITALS: BP 120/91; PULSE 97; TEMP 97.5
--- NOTE | 2018-05-10 07:40 | PN ---
Physical Exam: SUBJECTIVE: Patient seen and examined OBJECTIVE: Vital Signs Period Temp Pulse Resp BP Sys/Cook Pulse Ox Last 24 Hr 97.5 F-99.7 F 73-97 18-19 101-120/50-91 93-96 GENERAL: The patient is awake, alert, and fully oriented, in no acute distress. HEAD: Normal with no signs of trauma. EYES: PERRL, extraocular movements intact, sclera anicteric, conjunctiva clear. No ptosis. ENT: Ears normal, nares patent, oropharynx clear without exudates, moist mucous membranes. NECK: Trachea midline, full range of motion, supple. LUNGS: Breath sounds equal, clear to auscultation bilaterally, no wheezes, no crackles, no accessory muscle use. HEART: Regular rate and rhythm, S1, S2 without murmur, rub or gallop. ABDOMEN: Soft, nontender, nondistended, normoactive bowel sounds, no guarding, no rebound, no hepatosplenomegaly, no masses. EXTREMITIES: 2+ pulses, warm, well-perfused, no edema. NEUROLOGICAL: Cranial nerves II through XII grossly intact. Normal speech, gait not observed. PSYCH: Normal mood, normal affect. SKIN: Warm, dry, normal turgor, no rashes or lesions noted Laboratory Results - last 24 hr 05/09/18 05/09/18 07:20 07:28 WBC 8.1 RBC 4.01 Hgb 10.9 Hct 33.5 MCV 83.4 MCH 27.1 MCHC 32.5 RDW 16.3 H Plt Count 228 MPV 8.9 Absolute Neuts (auto) 5.1 Neutrophils % 63.8 Lymphocytes % 23.0 Monocytes % 9.3 Eosinophils % 2.8 Basophils % 1.1 Sodium 139 Potassium 4.7 Chloride 109 H Carbon Dioxide 23 Anion Gap 7 L BUN 11 D Creatinine 1.0 Creat Clearance w eGFR 55.47 Random Glucose 90 Calcium 8.3 L Magnesium 2.0 Total Bilirubin 0.7 D AST 14 D ALT 11 Alkaline Phosphatase 69 Total Protein 5.5 L Albumin 2.4 L Active Medications Generic Name Dose Route Start Last Admin Trade Name Freq PRN Reason Stop Dose Admin Acetaminophen 650 mg 05/08/18 16:02 05/08/18 21:27 Tylenol - PO 650 mg Q4H PRN Administration FEVER Albuterol Sulfate 1 amp 05/08/18 16:06 Ventolin 0.083% Nebulizer Soln - NEB Q6H PRN SHORT OF BREATH/WHEEZING Amlodipine Besylate 5 mg 05/09/18 10:00 05/09/18 09:16 Norvasc - PO 5 mg DAILY MARIA DEL CARMEN Administration Diphenhydramine HCl 25 mg 05/08/18 22:00 Benadryl - PO HS PRN INSOMNIA Docusate Sodium 100 mg 05/08/18 15:45 Colace - PO Q8H PRN CONSTIPATION Enoxaparin Sodium 40 mg 05/09/18 10:00 05/09/18 09:16 Lovenox - SQ 40 mg DAILY MARIA DEL CARMEN Administration Famotidine 20 mg 05/09/18 10:00 05/09/18 09:16 Pepcid - PO 20 mg DAILY MARIA DEL CARMEN Administration Gabapentin 600 mg 05/08/18 22:00 05/09/18 21:43 Neurontin - PO 600 mg BID MARIA DEL CARMEN Administration Sodium Chloride 1,000 mls @ 42 mls/hr 05/08/18 15:45 05/09/18 16:59 Normal Saline - IV 42 mls/hr ASDIR MARIA DEL CARMEN Administration Azithromycin 250 mls @ 250 mls/hr 05/09/18 10:00 05/09/18 09:16 Zithromax 500mg Ivpb (Pre-Docked) IVPB 250 mls/hr DAILY MARIA DEL CARMEN Administration Ceftriaxone Sodium 50 mls @ 200 mls/hr 05/09/18 10:00 05/09/18 09:15 Ceftriaxone 1 Gm-D5w Bag IVPB 200 mls/hr DAILY MARIA DEL CARMEN Administration Protocol Levothyroxine Sodium 88 mcg 05/09/18 07:00 05/10/18 06:21 Synthroid - PO 88 mcg ACBK MARIA DEL CARMEN Administration Loratadine 10 mg 05/09/18 10:00 05/09/18 09:16 Claritin - PO 10 mg DAILY MARIA DEL CARMEN Administration Meclizine HCl 25 mg 05/08/18 16:05 Antivert - PO Q8H PRN VERTIGO Montelukast Sodium 10 mg 05/08/18 22:00 05/09/18 21:43 Singulair - PO 10 mg HS MARIA DEL CARMEN Administration Non-Formulary Medication 50 mg 05/09/18 10:00 Mirabegron [Myrbetriq] PO DAILY MARIA DEL CARMEN Pantoprazole Sodium 40 mg 05/09/18 10:00 05/09/18 09:16 Protonix - PO 40 mg DAILY MARIA DEL CARMEN Administration ASSESSMENT/PLAN:
[2018-05-10] MEDS: AZITHROMYCIN IVPB 250 ML IVPB SCH (09:00)
[2018-05-10 09:10] LABS: BASO % 0.5 % (0-2.0); EOS % 3.6 % (0-4.5); HEMATOCRIT 32.5 % (32.4-45.2); HEMOGLOBIN 10.6 GM/dl (10.7-15.3); LYMPH % 30.6 % (8-40); MCH 27.2 pg (25.7-33.7); MCHC 32.6 g/dl (32.0-36.0); MEAN CELL VOLUME 83.5 fl (80-96); MEAN PLT VOLUME 8.7 fl (7.5-11.1); MONO % 11.5 % (3.8-10.2); NEUT % 53.8 % (42.8-82.8); PLATELET COUNT 246 K/MM3 (134-434); RBC 3.89 M/mm3 (3.60-5.2); RDW 16.2 % (11.6-15.6); WHITE BLOOD COUNT 6.8 K/mm3 (4.0-10.8)
[2018-05-10] MEDS ORDERED: PT OWN MED DRAWER 7, Y5N ONE (09:20)
[2018-05-10 09:33] LABS: ALBUMIN 2.3 g/dl (3.5-5.0); ALK PHOS 69 U/L (32-92); ANION GAP 3 (8-16); BLOOD UREA NITROGEN 9 mg/dl (7-18); CALCIUM 7.9 mg/dl (8.4-10.2); CHLORIDE 109 mmol/L (98-107); CO2 25 mmol/L (22-28); CREATININE 0.9 mg/dl (0.6-1.3); GLUCOSE,RANDOM 83 mg/dl (74-106); MAGNESIUM 1.9 mg/dL (1.8-2.4); PHOSPHOROUS 2.3 mg/dl (2.5-4.6); POTASSIUM 4.5 mmol/L (3.5-5.1); SGOT/AST 26 U/L (10-42); SGPT/ALT 15 U/L (10-40); SODIUM 137 mmol/L (136-145); TOT PROT 5.5 g/dl (6.4-8.3)
--- NOTE | 2018-05-10 09:34 | PN ---
Progress Note, Physician History of Present Illness: pulmonary alert,feeling bettet,less dyspneic,-cp - Current Medication List Current Medications: Active Medications Acetaminophen (Tylenol -) 650 mg PO Q4H PRN PRN Reason: FEVER Last Admin: 05/08/18 21:27 Dose: 650 mg Albuterol Sulfate (Ventolin 0.083% Nebulizer Soln -) 1 amp NEB Q6H PRN PRN Reason: SHORT OF BREATH/WHEEZING Amlodipine Besylate (Norvasc -) 5 mg PO DAILY [facility] Last Admin: 05/09/18 09:16 Dose: 5 mg Diphenhydramine HCl (Benadryl -) 25 mg PO HS PRN PRN Reason: INSOMNIA Docusate Sodium (Colace -) 100 mg PO Q8H PRN PRN Reason: CONSTIPATION Enoxaparin Sodium (Lovenox -) 40 mg SQ DAILY [facility] Last Admin: 05/09/18 09:16 Dose: 40 mg Famotidine (Pepcid -) 20 mg PO DAILY [facility] Last Admin: 05/09/18 09:16 Dose: 20 mg Gabapentin (Neurontin -) 600 mg PO BID [facility] Last Admin: 05/09/18 21:43 Dose: 600 mg Sodium Chloride (Normal Saline -) 1,000 mls @ 42 mls/hr IV ASDIR [facility] Last Admin: 05/09/18 16:59 Dose: 42 mls/hr Azithromycin (Zithromax 500mg Ivpb (Pre-Docked)) 250 mls @ 250 mls/hr IVPB DAILY [facility] Last Admin: 05/09/18 09:16 Dose: 250 mls/hr Ceftriaxone Sodium (Ceftriaxone 1 Gm-D5w Bag) 50 mls @ 200 mls/hr IVPB DAILY [facility]; Protocol Last Admin: 05/09/18 09:15 Dose: 200 mls/hr Levothyroxine Sodium (Synthroid -) 88 mcg PO ACBK [facility]IA DEL CARMEN Last Admin: 05/10/18 06:21 Dose: 88 mcg Loratadine (Claritin -) 10 mg PO DAILY [facility] Last Admin: 05/09/18 09:16 Dose: 10 mg Meclizine HCl (Antivert -) 25 mg PO Q8H PRN PRN Reason: VERTIGO Montelukast Sodium (Singulair -) 10 mg PO HS [facility] Last Admin: 05/09/18 21:43 Dose: 10 mg Non-Formulary Medication (Mirabegron [Myrbetriq]) 50 mg PO DAILY [facility] Pantoprazole Sodium (Protonix -) 40 mg PO DAILY [facility] Last Admin: 05/09/18 09:16 Dose: 40 mg - Objective Vital Signs: Vital Signs Temperature 97.5 F L 05/10/18 06:00 Pulse Rate 97 H 05/10/18 06:00 Respiratory Rate 18 05/10/18 08:21 Blood Pressure 120/91 05/10/18 06:00 O2 Sat by Pulse Oximetry (%) 93 L 05/10/18 08:21 Constitutional: Yes: Well Nourished, Calm Eyes: Yes: WNL HENT: Yes: WNL Cardiovascular: Yes: Regular Rate and Rhythm, S1, S2 Respiratory: Yes: Rales (bilateral crackles) Gastrointestinal: Yes: Normal Bowel Sounds, Soft Extremities: Yes: WNL Edema: No Labs: CBC, BMP 05/10/18 07:30 INR, PTT INR 1.25 (0.82-1.09) H 05/08/18 12:30 Assessment/Plan Problem List - Problems (1) IPF (idiopathic pulmonary fibrosis) Code(s): J84.112 - IDIOPATHIC PULMONARY FIBROSIS (2) Community acquired pneumonia Code(s): J18.9 - PNEUMONIA, UNSPECIFIED ORGANISM (3) DVT prophylaxis Code(s): [id number] - (4) Hypertension Code(s): I10 - ESSENTIAL (PRIMARY) HYPERTENSION (5) Hypoxia Code(s): R09.02 - HYPOXEMIA (6) Pneumonia Code(s): J18.9 - PNEUMONIA, UNSPECIFIED ORGANISM Qualifiers: Pneumonia type: due to unspecified organism Laterality: right Lung location: unspecified part of lung Qualified Code(s): J18.9 - Pneumonia, unspecified organism (7) Chest pain Code(s): R07.9 - CHEST PAIN, UNSPECIFIED Assessment/Plan R/O COMMUNITY ACQUIRED PNEUMONIA ACUTE ON CHRONIC HYPOXEMIC RESPIRATORY FAILURE ILD/IPF HTN PULMONARY NODULES PLAN ABX INHALED BRONCHODILATORS 02 SAT REST AND EXERCISE OUTPATIENT PULMONARY REHAB F/U CHEST CT OUTPATIENT DR LAUGHLIN
[2018-05-10 09:43] LABS: BILIRUBIN,TOTAL < 0.5 mg/dl (0.2-1.0)
[2018-05-10] MEDS: GABAPENTIN 300 MG CAPSULE (FP) PO SCH (10:55)
[2018-05-10] MEDS: amLODIPine BESYLATE 5 MG TABLET (FP) PO SCH (10:55)
[2018-05-10] MEDS: FAMOTIDINE 20 MG TABLET PO SCH (10:55)
[2018-05-10] MEDS: LORATADINE 10 MG TABLET PO SCH (10:55)
[2018-05-10] MEDS: CEFTRIAXONE 1 G/50 ML PREMIX 50 ML IVPB SCH (10:56)
[2018-05-10] MEDS: PANTOPRAZOLE 40 MG TABLET (FP) PO SCH (10:56)
[2018-05-10] MEDS: ENOXAPARIN NA (PORCINE) 40 MG/0.4 ML DISP.SYRIN SQ SCH (10:57)
--- NOTE | 2018-05-10 12:19 | DS ---
Physical Exam: SUBJECTIVE: Patient seen and examined, patient reports feeling much improved, denies any chest pain, shortness of breath, dyspnea upon exertion OBJECTIVE:This is a 67-year-old female with HTN, COPD (on home O2 prn, infrequently), pulmonary nodules, pulmonary fibrosis, hypothyroidism, and nephrectomy at [facility] 2005 (for "suspicious lesions") who presented to the ED with five days of subjective fever, sore throat, and right-sided chest pain. ER course was notable for: (1) T 100.7 and SpO2 87% on RA per verbal report from ER MD (2) CXR: Patchy right-sided infiltrate (3) Rapid strep negative (4) EKG SR with PACs, 82bpm; trop neg x 1 Vital Signs Period Temp Pulse Resp BP Sys/Cook Pulse Ox Last 24 Hr 97.5 F-99.1 F 76-97 18-19 101-120/50-91 93-95 PHYSICAL EXAM GENERAL: The patient is awake, alert, and fully oriented, in no acute distress. HEAD: Normal with no signs of trauma. EYES: PERRL, extraocular movements intact, sclera anicteric, conjunctiva clear. ENT: Ears normal, nares patent, oropharynx clear without exudates, moist mucous membranes. NECK: Trachea midline, full range of motion, supple. LUNGS: Breath sounds equal, clear to auscultation bilaterally, no wheezes, crackles to bilateral bases, no accessory muscle use. HEART: Regular rate and rhythm, S1, S2 without murmur, rub or gallop. ABDOMEN: Soft, nontender, nondistended, normoactive bowel sounds, no guarding, no rebound, no hepatosplenomegaly, no masses. EXTREMITIES: 2+ pulses, warm, well-perfused, no edema. NEUROLOGICAL: Cranial nerves II through XII grossly intact. Normal speech, gait not observed. PSYCH: Normal mood, normal affect. SKIN: Warm, dry, normal turgor, no rashes or lesions noted. LABS Laboratory Results - last 24 hr 05/10/18 05/10/18 07:30 07:30 WBC 6.8 RBC 3.89 Hgb 10.6 L Hct 32.5 MCV 83.5 MCH 27.2 MCHC 32.6 RDW 16.2 H Plt Count 246 MPV 8.7 Absolute Neuts (auto) 3.7 Neutrophils % 53.8 Lymphocytes % 30.6 Monocytes % 11.5 H Eosinophils % 3.6 Basophils % 0.5 Sodium 137 Potassium 4.5 Chloride 109 H Carbon Dioxide 25 Anion Gap 3 L BUN 9 Creatinine 0.9 Creat Clearance w eGFR > 60 Random Glucose 83 Calcium 7.9 L Phosphorus 2.3 L Magnesium 1.9 Total Bilirubin < 0.5 D AST 26 D ALT 15 D Alkaline Phosphatase 69 Total Protein 5.5 L Albumin 2.3 L Microbiology 05/08/18 15:24 Urine - Urine Clean Catch Urine Culture - Final NO GROWTH OBTAINED 05/08/18 12:30 Blood - Peripheral Venous Blood Culture - Preliminary NO GROWTH OBTAINED AFTER 24 HOURS, INCUBATION TO CONTINUE FOR 4 DAYS. 05/08/18 12:30 Blood - Peripheral Venous Blood Culture - Preliminary NO GROWTH OBTAINED AFTER 24 HOURS, INCUBATION TO CONTINUE FOR 4 DAYS. 05/08/18 19:00 Urine For Antigen Detection Legionella Antigen - Final, negative 05/08/18 19:00 Urine For Antigen Detection Streptococcus pneumoniae Antigen (M - Final, negative 05/08/18 11:22 Throat Throat Culture - Final NO BETA HEMOLYTIC STREPTOCOCCI ISOLATED 05/08/18 11:22 Throat Group A Strep Rapid Antigen - Final, negative IMAGING chest xray: Patchy right infiltrate chest CT w/o contrast: Is sleepy abnormal lungs with fibrotic change, consolidations and bronchial active changes probable mucous plugging, 2 specific areas of the left upper lung include a speculum lesion and small solitary nodule need follow-up in 6 months as per radiologist ultrasound of abdomen: s/p cholecystectomy and right nephrectomy, borderline prominent pancreatic head measuring 3 cm in AP but no evidence of a discrete mass, dilated pancreatic duct at the junction of the pancreatic body entailed measuring 4 mm in diameter HOSPITAL COURSE: 1)community acquired pneumonia - rocephin and Zithromax (05/09 - 05/10) - blood cultures and urine antigens negative to date - SpO2 above 92% with supplemental O2 - no leukocytosis noted, patient is afebrile copd - albuterol nebulizer prn - pre and post oxygen, spo2 88% resting without oxygen, after exercise 84%, with o2 resulted as 93%, patient will require continue home oxygen - pulmonary, Dr Ferreira consulted 2) cardiovascular hypertension - continue norvasc b/p at goal 3) hypothyroidism - continue levothryoxine PLAN - discharge home with VNS - Continuous oxygen at home - Scheduled follow-up appointment with patient's private engagement manager Dr. Cadena, on 05/11/2018 at 10am Date of Admission:05/08/18 Date of Discharge: 05/10/18 Minutes to complete discharge: 45 Discharge Summary Reason For Visit: PNEUMONIA Current Active Problems Community acquired pneumonia (Acute) DVT prophylaxis (Acute) Hypertension (Acute) Hypothyroidism (Acute) Hypoxia (Acute) IPF (idiopathic pulmonary fibrosis) (Acute) Pneumonia (Acute) Condition: Good - Instructions Diet, Activity, Other Instructions: please follow up with your engagement manager, Dr Cadena at 10am tomorrow 05/11/18 continue ceftin (antibiotic) for the next 7 days continue all medications as prescribed continue albuterol nebulizers every 4-6 hours as needed for shortness of breath or wheezing if any new or persistent symptoms develop please return to the emergency department Referrals: Eloisa Miller MD [Primary Care Provider] - Joey Cadena MD [Staff Physician] - 05/11/18 10:00 am Disposition: VNS/HOME HEALTH CARE - Home Medications Comprehensive Discharge Medication List: Ambulatory Orders Levothyroxine [Synthroid -] 88 mcg PO DAILY 08/10/12 Montelukast Na [Singulair -] 10 mg PO HS 08/10/12 Amlodipine Besylate [Norvasc -] 5 mg PO DAILY 05/08/18 Cetirizine HCl [Zyrtec -] 10 mg PO DAILY PRN 05/08/18 Dexlansoprazole [Dexilant] 60 mg PO DAILY 05/08/18 Famotidine [Pepcid] 20 mg PO DAILY 05/08/18 Gabapentin 600 mg PO BID 05/08/18 Meclizine HCl [Antivert -] 25 mg PO TID PRN 05/08/18 Mirabegron [Myrbetriq] 50 mg PO DAILY 05/08/18 This patient is new to me today: No Emergency Visit: Yes ED Registration Date: 05/08/18 Care time: The patient presented to the Emergency Department on the above date and was hospitalized for further evaluation of their emergent condition. Critical Care patient: No - Discharge Referral Referred to [facility] Med P.C.: No
== END 2018-05-10 13:40 | disposition home health service (06) | DRG 193 ==
LOC: SUPCPDRO 10:49 → FER 10:49 → FM/S 15:23
PROVIDERS: ADMIT Internal Medicine; ATTEND Nurse Practitioner Family
DX: J18.9 Pneumonia, unspecified organism (principal); J96.21 Acute and chronic respiratory failure with hypoxia; J84.112 Idiopathic pulmonary fibrosis; I10 Essential (primary) hypertension; J44.9 Chronic obstructive pulmonary disease, unspecified; R91.1 Solitary pulmonary nodule; Z99.81 Dependence on supplemental oxygen; E03.9 Hypothyroidism, unspecified
CPT/HCPCS: 36415; 71046-TC-FY; 71250-TC; 76705-TC; 80053; 81003; 81015; 82550; 82803; 83605; 83735; 84100; 84484; 85025; 85610; 85730; 87040; 87070; 87086; 87430; 87899; 93005; 99283-25; J7030

== ENCOUNTER 2018-10-01 07:57 | Emergency (ER) | payer OTHER ==
[2018-10-01 08:07] VITALS: BP 114/64; PULSE 63; TEMP 98.6; BMI 35.9
[2018-10-01] MEDS ORDERED: SILVER SULFADIAZINE 1% TOP CREAM 50 GM JAR TP ONE ×2 (08:22)
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
== END 2018-10-01 08:41 | disposition home or self-care (01) ==
LOC: JERFT 07:57
PROC: 2W2DX4Z Dressing of Left Lower Arm using Bandage (ICD-10-PCS; principal; 2018-10-01)
DX: T22.212A Burn of second degree of left forearm, initial encounter (principal); X10.0XXA Contact with hot drinks, initial encounter; Y93.89 Activity, other specified; Y92.59 Other trade areas as the place of occurrence of the external cause; Y99.8 Other external cause status; I10 Essential (primary) hypertension; E11.9 Type 2 diabetes mellitus without complications; E78.00 Pure hypercholesterolemia, unspecified; E03.9 Hypothyroidism, unspecified
CPT/HCPCS: 16020; 99281-25

== ENCOUNTER 2019-05-21 15:46 | Inpatient (IN) | payer OTHER ==
--- NOTE | 2019-05-21 16:44 | PDOC ---
Documentation entered by Nadeen Whaley SCRIBE, acting as scribe for Jamaica Nam MD. Jamaica Nam MD: This documentation has been prepared by the Judd souza Xhesika, SCRIBE, under my direction and personally reviewed by me in its entirety. I confirm that the documentation accurately reflects all work, treatment, procedures, and medical decision making performed by me. History of Present Illness - General Chief Complaint: Chest Pain Stated Complaint: CHEST & BACK PAIN X 3 DAYS Time Seen by Provider: 05/21/19 16:10 History Source: Patient Exam Limitations: No Limitations - History of Present Illness Initial Comments: 05/21/19 16:34 The patient is a 68 year old female, with a significant PMH of GERD, heart murmur, htn, copd , pulm fibrosis (3 L home O2) pulmonary nodules (s/p nephrectomy), who presents to the emergency department with 3 days of R sided chest pain and worsening SOB. The patient states her SOB is worsened when lying down so she sleeps with 2 pillows. also c/o dysuria, , frequency, R mid quadrant pain, and R flank pain. The patient notes she was admitted here at [facility] last year for pneumonia. only wears oxygen sometimes, sleeps with 2 pillows at baseline. denies leg edema. pain in chest is not plueritic. no h/o pe or dvt. The patient denies headache and dizziness. Denies fever, chills, nausea, vomiting, diarrhea and constipation. Denies urgency and hematuria. Allergies: NKA Past surgical history: cholecystectomy PCP: Eloisa Muir 05/21/19 16:40 Past History - Past Medical History Allergies/Adverse Reactions: Allergies Allergy/AdvReac Type Severity Reaction Status Date / Time peaches Allergy Severe Difficulty Uncoded 10/01/18 08:14 Breathing Home Medications: Ambulatory Orders Levothyroxine [Synthroid -] 88 mcg PO DAILY 08/10/12 Montelukast Na [Singulair -] 10 mg PO HS 08/10/12 Amlodipine Besylate [Norvasc -] 5 mg PO DAILY 05/08/18 Cetirizine HCl [Zyrtec -] 10 mg PO DAILY PRN 05/08/18 Dexlansoprazole [Dexilant] 60 mg PO DAILY 05/08/18 Famotidine [Pepcid] 20 mg PO DAILY 05/08/18 Gabapentin 600 mg PO BID 05/08/18 Meclizine HCl [Antivert -] 25 mg PO TID PRN 05/08/18 Mirabegron [Myrbetriq] 50 mg PO DAILY 05/08/18 Acetaminophen [Tylenol .Regular Strength -] 650 mg PO Q4H PRN tablet 05/10/18 Albuterol 0.083% Nebulizer Lisa [Ventolin 0.083% Nebulizer Soln -] 1 amp NEB Q6H PRN #120 amp 05/10/18 Docusate Sodium [Colace -] 100 mg PO Q8H PRN #0 capsule 05/10/18 Amoxicillin - [Amoxicillin 500mg Capsule -] 500 mg PO BID 10/01/18 Silver Sulfadiazine 1% Top Cr [Silvadene -] 1 applic TP BID #1 jar 10/01/18 Cardiac Disorders: Yes (MURMUR) COPD: Yes GI Disorders: Yes (GERD) HTN: Yes Kidney Stones: Yes Thyroid Disease: Yes - Surgical History Cholecystectomy: Yes - Suicide/Smoking/Psychosocial Hx Smoking Status: No Smoking History: Never smoked Have you smoked in the past 12 months: No Number of Cigarettes Smoked Daily: 0 Hx Alcohol Use: No Drug/Substance Use Hx: No Substance Use Type: None Hx Substance Use Treatment: No Review of Systems - Review of Systems Able to Perform ROS?: Yes Comments:: 05/21/19 16:38 GENERAL/CONSTITUTIONAL: No fever or chills. No weakness. HEAD, EYES, EARS, NOSE AND THROAT: No change in vision. No ear pain or discharge. No sore throat. CARDIOVASCULAR: (+) R sided chest pain or shortness of breath. RESPIRATORY: No cough, wheezing, or hemoptysis. GASTROINTESTINAL: No nausea, vomiting, diarrhea or constipation. GENITOURINARY: (+) dysuria. (+) frequency MUSCULOSKELETAL: (+) R mid quadrant pain. (+) R flank pain. No joint or muscle swelling or pain. No neck pain. SKIN: No rash NEUROLOGIC: No headache, vertigo, loss of consciousness, or change in strength/ sensation. ENDOCRINE: No increased thirst. No abnormal weight change. HEMATOLOGIC/LYMPHATIC: No anemia, easy bleeding, or history of blood clots. ALLERGIC/IMMUNOLOGIC: No hives or skin allergy. *Physical Exam - Vital Signs Last Vital Signs Temp Pulse Resp BP Pulse Ox 98.8 F 99 H 20 118/75 88 L 05/21/19 15:53 05/21/19 15:53 05/21/19 15:53 05/21/19 15:53 05/21/19 15:53 - Physical Exam Comments: 05/21/19 16:42 awake alert lungs with fine crackles bilat bases. faint exp wheeze right anterior lung field. heart rrr no mrg abd soft mild ruq mid quad ttp. legs no edema. no calf tenderness. nuero alert oriented x 3. skin warm and dry. Heart Score/ECG Review #1 General ECG Interpretation: Sinus Rhythm, Normal Rate (95 sinus tach), Normal Intervals, No acute ischemic changes Compared to previous ECG there are: Other (left axis, occas PAC, no st elevation or depression.) ED Treatment Course - LABORATORY CBC & Chemistry Diagram: 05/21/19 16:30 05/21/19 16:30 Medical Decision Making - Medical Decision Making 05/21/19 16:43 68 yo F h/o copd/ pulm fibrosis, chf, htn hep c, here with right side chest pain and urinary sxs, sob differnetial uti, anemia, mi, chf, pna, effusion. plan duoneb, labs ekg cxr ua urine culture. blood cultures. will likely requrie admission. today oxygen saturation 88 % RA> 05/21/19 18:26 pt with cxr with right upper lobe pna, ua positive for uti, labs otherwise unremarkable. WBC elevated to 21. will treat with ceftriaxone and azithromycin. d/w dr elder for admission. will obtain ct a r/o pe. evaluate appearance of right upper lobe r/o mass. *DC/Admit/Observation/Transfer Diagnosis at time of Disposition: Pneumonia, COPD (chronic obstructive pulmonary disease), UTI (urinary tract infection) - Discharge Dispostion Condition at time of disposition: Fair Decision to Admit order: Yes - Referrals Referrals: Eloisa Miller MD [Primary Care Provider] - - Patient Instructions - Post Discharge Activity
[2019-05-21 16:55] LABS: RDW 16.1 % (11.6-15.6)
[2019-05-21 16:57] LABS: HEMATOCRIT 37.7 % (32.4-45.2); MCH 26.2 pg (25.7-33.7); MCHC 31.7 g/dl (32.0-36.0); MEAN CELL VOLUME 82.5 fl (80-96); MEAN PLT VOLUME 10.1 fl (7.5-11.1); PLATELET COUNT 291 K/MM3 (134-434); RBC 4.57 M/mm3 (3.60-5.2); WHITE BLOOD COUNT 21.9 K/mm3 (4.0-10.8)
[2019-05-21 17:15] LABS: ALBUMIN 3.2 g/dl (3.4-5.0); BILIRUBIN,TOTAL 1.2 mg/dl (0.2-1); CALCIUM 8.7 mg/dl (8.5-10); CREATININE 1.3 mg/dl (0.55-1.3); POTASSIUM 4.5 mmol/L (3.5-5.1)
[2019-05-21 17:16] LABS: ACTIVATED PTT 26.7 SECONDS (25.2-36.5)
[2019-05-21 17:20] LABS: INR 1.3 (0.82-1.09); PROTHROMBIN TIME (PATIENT) 14.5 SEC (10.2-13.0)
[2019-05-21 17:43] LABS: PLATELET ESTIMATE ADEQUATE
[2019-05-21] MEDS ORDERED: AZITHROMYCIN IVPB 500 MG in DEXTROSE 5%-WATER - 250 ML IVPB ONE (17:48)
[2019-05-21] MEDS ORDERED: CEFTRIAXONE 1,000 MG in DEXTROSE 5%-WATER - 50 ML IVPB ONE (17:48)
[2019-05-21] MEDS ORDERED: CEFTRIAXONE 1 GM in DEXTROSE 5%-WATER - 50 ML IVPB SCH (17:48)
[2019-05-21 17:49] LABS: N-TERMINAL BNP 508.2 pg/ml (5-125)
[2019-05-21] MEDS ORDERED: cefTRIAXone SODIUM 1 GM VIAL ONE (17:54)
[2019-05-21] MEDS ORDERED: AZITHROMYCIN 500 MG VIAL IVPB ONE (17:54)
[2019-05-21 17:55] LABS: EPITHELIAL CELLS MODERATE /hpf
[2019-05-21] MEDS ORDERED: SODIUM CHLORIDE 0.9% 1000 ML INFUS.BAG IV ONE (18:00)
[2019-05-21 18:23] LABS: VENOUS PC02 44.1 mmHg (41-51); VENOUS PH 7.33 (7.31-7.41)
--- NOTE | 2019-05-21 18:30 | HP ---
CHIEF COMPLAINT: right chest pain, SOB PCP:Eloisa Muir HISTORY OF PRESENT ILLNESS: 68 year old woman presented with 3 days of R sided chest pain and worsening SOB. The patient states her SOB is worsened when lying down so she sleeps with 2 pillows. Also c/o dysuria, , frequency. Only wears oxygen sometimes, sleeps with 2 pillows at baseline. ER course was notable for: (1) cxr (2) ceftriaxone (3) azithromycin Recent Travel: no PAST MEDICAL HISTORY: GERD, heart murmur, htn, copd , pulm fibrosis (3 L home O2 ) pulmonary nodules ( PAST SURGICAL HISTORY: cholecystectomy, s/p nephrectomy, tubal ligation, gastric bypass, abdominoplasty Social History: Not working. Lives with and daughter. From , [place]. Smoking: Never smoker, reports significant second-hand smoke from and her parents Alcohol: None Drugs: None Allergies peaches Allergy (Severe, Uncoded 10/01/18 08:14) Difficulty Breathing HOME MEDICATIONS: Home Medications Medication Instructions Recorded Levothyroxine [Synthroid -] 88 mcg PO DAILY 08/10/12 Montelukast Na [Singulair -] 10 mg PO HS 08/10/12 Amlodipine Besylate [Norvasc -] 5 mg PO DAILY 05/08/18 Cetirizine HCl [Zyrtec -] 10 mg PO DAILY PRN 05/08/18 Dexlansoprazole [Dexilant] 60 mg PO DAILY 05/08/18 Famotidine [Pepcid] 20 mg PO DAILY 05/08/18 Gabapentin 600 mg PO BID 05/08/18 Meclizine HCl [Antivert -] 25 mg PO TID PRN 05/08/18 Mirabegron [Myrbetriq] 50 mg PO DAILY 05/08/18 Acetaminophen [Tylenol .Regular 650 mg PO Q4H PRN tablet 05/10/18 Strength -] Albuterol 0.083% Nebulizer Lisa 1 amp NEB Q6H PRN #120 amp 05/10/18 [Ventolin 0.083% Nebulizer Soln -] Docusate Sodium [Colace -] 100 mg PO Q8H PRN #0 capsule 05/10/18 Amoxicillin - [Amoxicillin 500mg 500 mg PO BID 10/01/18 Capsule -] Silver Sulfadiazine 1% Top Cr 1 applic TP BID #1 jar 10/01/18 [Silvadene -] REVIEW OF SYSTEMS CONSTITUTIONAL: Absent: fever, chills, diaphoresis, generalized weakness, malaise, loss of appetite, weight change HEENT: Absent: rhinorrhea, nasal congestion, throat pain, throat swelling, difficulty swallowing, mouth swelling, ear pain, eye pain, visual changes CARDIOVASCULAR: Absent: syncope, palpitations, irregular heart rate, lightheadedness, peripheral edema present- chest pain, RESPIRATORY: Absent: cough, orthopnea, wheezing, stridor, hemoptysis present- shortness of breath, dyspnea with exertion, GASTROINTESTINAL: Absent: abdominal pain, abdominal distension, nausea, vomiting, diarrhea, constipation, melena, hematochezia GENITOURINARY: Absent: dysuria, frequency, urgency, hesitancy, hematuria, flank pain, genital pain MUSCULOSKELETAL: Absent: myalgia, arthralgia, joint swelling, back pain, neck pain SKIN: Absent: rash, itching, pallor HEMATOLOGIC/IMMUNOLOGIC: Absent: easy bleeding, easy bruising, lymphadenopathy, frequent infections ENDOCRINE: Absent: unexplained weight gain, unexplained weight loss, heat intolerance, cold intolerance NEUROLOGIC: Absent: headache, focal weakness or paresthesias, dizziness, unsteady gait, seizure, mental status changes, bladder or bowel incontinence PSYCHIATRIC: Absent: anxiety, depression, suicidal or homicidal ideation, hallucinations. PHYSICAL EXAMINATION Vital Signs - 24 hr 05/21/19 05/21/19 05/21/19 15:53 16:45 17:45 Temperature 98.8 F Pulse Rate 99 H Pulse Rate [ 82 85 Apical] Respiratory 20 22 H 25 H Rate Blood Pressure 118/75 Blood Pressure 122/79 125/81 [Right Arm] O2 Sat by Pulse 96 96 96 Oximetry (%) GENERAL: Awake, alert, and fully oriented, in no acute distress. HEAD: Normal with no signs of trauma. EYES: Pupils equal, round and reactive to light, extraocular movements intact, sclera anicteric, conjunctiva clear. No lid lag. EARS, NOSE, THROAT: Ears normal, nares patent, oropharynx clear without exudates. Moist mucous membranes. NECK: Normal range of motion, supple without lymphadenopathy, JVD, or masses. LUNGS: right midlung rhonchi HEART: Regular rate and rhythm, normal S1 and S2 systolic murmur ABDOMEN: Soft, nontender, not distended, normoactive bowel sounds, no guarding, no rebound, no masses. MUSCULOSKELETAL: Normal range of motion at all joints. No bony deformities or tenderness. No CVA tenderness. UPPER EXTREMITIES: 2+ pulses, warm, well-perfused. No cyanosis. No clubbing. No peripheral edema. LOWER EXTREMITIES: 2+ pulses, warm, well-perfused. No calf tenderness. No peripheral edema. NEUROLOGICAL: Cranial nerves II-XII intact. Normal speech. Normal gait. PSYCHIATRIC: Cooperative. Good eye contact. Appropriate mood and affect. SKIN: Warm, dry, normal turgor, no rashes or lesions noted, normal capillary refill. Laboratory Results - last 24 hr 05/21/19 05/21/19 05/21/19 16:30 16:30 16:30 WBC 21.9 H RBC 4.57 Hgb 12.0 Hct 37.7 D MCV 82.5 MCH 26.2 MCHC 31.7 L RDW 16.1 H Plt Count 291 MPV 10.1 Absolute Neuts (auto) 15.6 Neutrophils % No Result Required. Neutrophils % (Manual) 57.0 Band Neutrophils % 6.0 Lymphocytes % No Result Required. Lymphocytes % (Manual) 30.0 Monocytes % (Manual) 7 Platelet Estimate Adequate Platelet Comment Rare giant plts PT with INR 14.5 H INR 1.30 H PTT (Actin FS) 26.7 VBG pH POC VBG pCO2 POC VBG pO2 VBG HCO3 VBG O2 Sat (Dwayne) VBG Base Excess Sodium 135 L Potassium 4.5 Chloride 104 Carbon Dioxide 21 Anion Gap 10 BUN 18.0 Creatinine 1.3 Est GFR (CKD-EPI)AfAm 49.16 Est GFR (CKD-EPI)NonAf 42.42 Random Glucose 111 H Lactic Acid Calcium 8.7 Total Bilirubin 1.2 H AST 21 ALT 12 L Alkaline Phosphatase 85 Troponin I B-Natriuretic Peptide 508.2 H Total Protein 7.0 Albumin 3.2 L Urine Color Urine Appearance Urine pH Urine Protein Urine Glucose (UA) Urine Ketones Urine Blood Urine Nitrite Urine Bilirubin Urine Urobilinogen Ur Leukocyte Esterase Urine RBC Urine WBC Ur Transition Epith Cell 05/21/19 05/21/19 05/21/19 16:30 16:30 17:20 WBC RBC Hgb Hct MCV MCH MCHC RDW Plt Count MPV Absolute Neuts (auto) Neutrophils % Neutrophils % (Manual) Band Neutrophils % Lymphocytes % Lymphocytes % (Manual) Monocytes % (Manual) Platelet Estimate Platelet Comment PT with INR INR PTT (Actin FS) VBG pH POC VBG pCO2 POC VBG pO2 VBG HCO3 VBG O2 Sat (Dwayne) VBG Base Excess Sodium Potassium Chloride Carbon Dioxide Anion Gap BUN Creatinine Est GFR (CKD-EPI)AfAm Est GFR (CKD-EPI)NonAf Random Glucose Lactic Acid 1.3 Calcium Total Bilirubin AST ALT Alkaline Phosphatase Troponin I < 0.03 B-Natriuretic Peptide Total Protein Albumin Urine Color Yellow Urine Appearance Slightly Urine pH 5.5 Urine Protein 1+ H Urine Glucose (UA) Negative Urine Ketones Trace Urine Blood Negative Urine Nitrite Negative Urine Bilirubin Negative Urine Urobilinogen 1.0 Ur Leukocyte Esterase 2+ Urine RBC 0-2 Urine WBC 20-40 Ur Transition Epith Cell Moderate 05/21/19 17:25 WBC RBC Hgb Hct MCV MCH MCHC RDW Plt Count MPV Absolute Neuts (auto) Neutrophils % Neutrophils % (Manual) Band Neutrophils % Lymphocytes % Lymphocytes % (Manual) Monocytes % (Manual) Platelet Estimate Platelet Comment PT with INR INR PTT (Actin FS) VBG pH 7.33 POC VBG pCO2 44.1 POC VBG pO2 40.0 VBG HCO3 22.7 L VBG O2 Sat (Dwayne) 62.2 L VBG Base Excess -2.6 L Sodium Potassium Chloride Carbon Dioxide Anion Gap BUN Creatinine Est GFR (CKD-EPI)AfAm Est GFR (CKD-EPI)NonAf Random Glucose Lactic Acid Calcium Total Bilirubin AST ALT Alkaline Phosphatase Troponin I B-Natriuretic Peptide Total Protein Albumin Urine Color Urine Appearance Urine pH Urine Protein Urine Glucose (UA) Urine Ketones Urine Blood Urine Nitrite Urine Bilirubin Urine Urobilinogen Ur Leukocyte Esterase Urine RBC Urine WBC Ur Transition Epith Cell CXR reviewed ekg -ventricular bigeminy? CTA appeared to have right mid lung infiltrate ASSESSMENT/PLAN: 68yo woman with pulmonary fibrosis, w/ community acquired right lobar pneumonia. ACS should also be ruled out given history of chest pain and SOB. UTI + as patient presenting with dysuria, pyuria, LE+ present on UA. #CAP -admit to telemetry -blood cultures x2 -sputum culture -legionella urine ag -ceftriaxone 1g IV q24hrs -azithromycin 500mg IV q24hrs -supplemental o2 via nasal cannula #R/o ACS/ abnormal ekg- ventricular bigeminy? -cardiac monitoring -trend troponin -echo -cardic stress test -ASA -NGL sublingual prn -cardiology consult #Cystitis- no cva tenderness -urine cx -ceftriaxone #Hypothyroidism -c/w home dose levothyroxine -send tsh #Pulmonary fibrosis -supplemental oxygen via nasal cannula -montelukast -albuterol neb prn #HTN -controlled -c/w amlodipine home dose dvt ppx- heparin sc Visit type - Emergency Visit Emergency Visit: Yes ED Registration Date: 05/21/19 Care time: The patient presented to the Emergency Department on the above date and was hospitalized for further evaluation of their emergent condition. - New Patient This patient is new to me today: Yes Date on this admission: 05/22/19 - Critical Care Critical Care patient: No
[2019-05-21] MEDS ORDERED: ALBUTEROL SO4 0.083% IH SOL 2.5 MG/3 ML VIAL.NEB. NEB PRN (18:38)
[2019-05-21] MEDS ORDERED: LORATADINE 10 MG TABLET PO PRN (18:38)
[2019-05-21] MEDS ORDERED: MECLIZINE HCL 25 MG TABLET (FP) PO PRN (18:38)
[2019-05-21] MEDS ORDERED: DOCUSATE SODIUM 100 MG CAPSULE (FP) PO PRN (18:38)
[2019-05-21 20:42] VITALS: BMI 34.2
[2019-05-21] MEDS ORDERED: GABAPENTIN 300 MG CAPSULE (FP) PO SCH ×2 (22:00)
[2019-05-21] MEDS: HEPARIN NA (PORCINE) 5,000 UNITS/ML 1ML VIAL SQ SCH ×2 (22:16→22:32)
[2019-05-21] MEDS: MONTELUKAST NA 10 MG TABLET PO SCH (22:16)
[2019-05-21] MEDS: amLODIPine BESYLATE 5 MG TABLET (FP) PO SCH (22:58)
[2019-05-21] MEDS: metoPROLOL SUCCINATE 25 MG TAB.SR.24H (FP) PO SCH (22:58)
[2019-05-21] MEDS ORDERED: GABAPENTIN 300 MG CAPSULE (FP) PO ONE (23:00)
[2019-05-22] MEDS: ACETAMINOPHEN 325 MG TABLET (FP) PO PRN ×2 (00:21→21:44)
[2019-05-22] MEDS: LEVOTHYROXINE NA 88 MCG TABLET (FP) PO SCH (06:08)
--- NOTE | 2019-05-22 07:28 | PN ---
Physical Exam: SUBJECTIVE: Patient seen and examined at bedside. Seen ambulating with nurse. OBJECTIVE: Vital Signs Period Temp Pulse Resp BP Sys/Cook Pulse Ox Last 24 Hr 98.6 F-100.1 F 57-101 19-25 99-132/60-81 88-96 GENERAL: The patient is awake, alert, and fully oriented, in no acute distress. LUNGS: RML and RLL crackles; no wheezing, no accessory muscle use HEART: Regular rate and rhythm, S1, S2 ABDOMEN: Soft, nontender, nondistended EXTREMITIES: 2+ pulses, warm, well-perfused, no edema. NEUROLOGICAL: Cranial nerves II through XII grossly intact. Normal speech, steady gait Laboratory Results - last 24 hr 05/21/19 05/21/19 05/21/19 16:30 16:30 16:30 WBC 21.9 H RBC 4.57 Hgb 12.0 Hct 37.7 D MCV 82.5 MCH 26.2 MCHC 31.7 L RDW 16.1 H Plt Count 291 MPV 10.1 Absolute Neuts (auto) 15.6 Neutrophils % No Result Required. Neutrophils % (Manual) 57.0 Band Neutrophils % 6.0 Lymphocytes % No Result Required. Lymphocytes % (Manual) 30.0 Monocytes % (Manual) 7 Platelet Estimate Adequate Platelet Comment Rare giant plts PT with INR 14.5 H INR 1.30 H PTT (Actin FS) 26.7 VBG pH POC VBG pCO2 POC VBG pO2 VBG HCO3 VBG O2 Sat (Dwayne) VBG Base Excess Sodium 135 L Potassium 4.5 Chloride 104 Carbon Dioxide 21 Anion Gap 10 BUN 18.0 Creatinine 1.3 Est GFR (CKD-EPI)AfAm 49.16 Est GFR (CKD-EPI)NonAf 42.42 Random Glucose 111 H Lactic Acid Calcium 8.7 Total Bilirubin 1.2 H AST 21 ALT 12 L Alkaline Phosphatase 85 Troponin I B-Natriuretic Peptide 508.2 H Total Protein 7.0 Albumin 3.2 L Urine Color Urine Appearance Urine pH Urine Protein Urine Glucose (UA) Urine Ketones Urine Blood Urine Nitrite Urine Bilirubin Urine Urobilinogen Ur Leukocyte Esterase Urine RBC Urine WBC Ur Transition Epith Cell 05/21/19 05/21/19 05/21/19 16:30 16:30 17:20 WBC RBC Hgb Hct MCV MCH MCHC RDW Plt Count MPV Absolute Neuts (auto) Neutrophils % Neutrophils % (Manual) Band Neutrophils % Lymphocytes % Lymphocytes % (Manual) Monocytes % (Manual) Platelet Estimate Platelet Comment PT with INR INR PTT (Actin FS) VBG pH POC VBG pCO2 POC VBG pO2 VBG HCO3 VBG O2 Sat (Dwayne) VBG Base Excess Sodium Potassium Chloride Carbon Dioxide Anion Gap BUN Creatinine Est GFR (CKD-EPI)AfAm Est GFR (CKD-EPI)NonAf Random Glucose Lactic Acid 1.3 Calcium Total Bilirubin AST ALT Alkaline Phosphatase Troponin I < 0.03 B-Natriuretic Peptide Total Protein Albumin Urine Color Yellow Urine Appearance Slightly Urine pH 5.5 Urine Protein 1+ H Urine Glucose (UA) Negative Urine Ketones Trace Urine Blood Negative Urine Nitrite Negative Urine Bilirubin Negative Urine Urobilinogen 1.0 Ur Leukocyte Esterase 2+ Urine RBC 0-2 Urine WBC 20-40 Ur Transition Epith Cell Moderate 05/21/19 05/22/19 05/22/19 17:25 00:00 00:00 WBC RBC Hgb Hct MCV MCH MCHC RDW Plt Count MPV Absolute Neuts (auto) Neutrophils % Neutrophils % (Manual) Band Neutrophils % Lymphocytes % Lymphocytes % (Manual) Monocytes % (Manual) Platelet Estimate Platelet Comment PT with INR INR PTT (Actin FS) VBG pH 7.33 POC VBG pCO2 44.1 POC VBG pO2 40.0 VBG HCO3 22.7 L VBG O2 Sat (Dwayne) 62.2 L VBG Base Excess -2.6 L Sodium Potassium Chloride Carbon Dioxide Anion Gap BUN Creatinine Est GFR (CKD-EPI)AfAm Est GFR (CKD-EPI)NonAf Random Glucose Lactic Acid Calcium Total Bilirubin AST ALT Alkaline Phosphatase Troponin I Cancelled < 0.02 B-Natriuretic Peptide Total Protein Albumin Urine Color Urine Appearance Urine pH Urine Protein Urine Glucose (UA) Urine Ketones Urine Blood Urine Nitrite Urine Bilirubin Urine Urobilinogen Ur Leukocyte Esterase Urine RBC Urine WBC Ur Transition Epith Cell Active Medications Generic Name Dose Route Start Last Admin Trade Name Freq PRN Reason Stop Dose Admin Acetaminophen 650 mg 05/22/19 00:08 05/22/19 00:21 Tylenol - PO 650 mg Q6H PRN Administration FEVER Albuterol Sulfate 1 amp 05/21/19 18:38 Ventolin 0.083% Nebulizer Soln - NEB Q6H PRN SHORT OF BREATH/WHEEZING Amlodipine Besylate 5 mg 05/21/19 23:00 05/21/19 22:58 Norvasc - PO 5 mg HS MARIA DEL CARMEN Administration Docusate Sodium 100 mg 05/21/19 18:38 Colace - PO Q8H PRN CONSTIPATION Gabapentin 600 mg 05/21/19 22:36 Neurontin - PO HS MARIA DEL CARMEN Heparin Sodium (Porcine) 5,000 unit 05/21/19 22:00 05/21/19 22:32 Heparin - SQ Not Given BID MARIA DEL CARMEN Azithromycin 500 mg/ Dextrose 250 mls @ 250 mls/hr 05/22/19 10:00 IVPB DAILY MARIA DEL CARMEN Ceftriaxone Sodium 1 gm/ 50 mls @ 100 mls/hr 05/21/19 17:48 Dextrose IVPB DAILY MARIA DEL CARMEN Levothyroxine Sodium 88 mcg 05/22/19 07:00 05/22/19 06:08 Synthroid - PO 88 mcg DAILY@0700 MARIA DEL CARMEN Administration Loratadine 10 mg 05/21/19 18:38 Claritin - PO DAILY PRN NASAL CONGESTION Meclizine HCl 25 mg 05/21/19 18:38 05/22/19 06:08 Antivert - PO 25 mg TID PRN Administration VERTIGO Metoprolol Succinate 25 mg 05/21/19 22:45 05/21/19 22:58 Toprol Xl - PO 25 mg HS MARIA DEL CARMEN Administration Montelukast Sodium 10 mg 05/21/19 22:00 05/21/19 22:16 Singulair - PO 10 mg HS MARIA DEL CARMEN Administration Non-Formulary Medication 50 mg 05/22/19 10:00 Mirabegron [Myrbetriq] PO DAILY MARIA DEL CARMEN Pantoprazole Sodium 40 mg 05/22/19 10:00 Protonix - PO DAILY [facility] PCP: Angela Ball Holder: Tammi Cardioogy: Jose Angel Stephenson ASSESSMENT/PLAN: 68 year-old female with a PMH significant for HTN, asthma, hypothyroidism, COPD , ILD/IPF on home O2, h/o spiculated pulmonary nodules, s/p nephrectomy (2007). Admitted for acute on chronic respiratory failure, possible CAP, and UTI. Shortness of breath Acute on chronic hypoxic respiratory failure Asthma/COPD ILD/IPF Spiculated lung nodules --05/22 CTA: RUL consolidate and new spiculated nodules --SpO2 91% on room air at rest, 83% on room air with flat surface walking --will treat empirically for CAP, ceftriaxone (day #2) and azithro (day #2) --daily bedside peakflow; today 200 --pulmonary consult Right-sided chest pain h/o NSVT, PSVT --troponins negative x 3 --01/05/19 Holter monitor: multiple episodes non-sustained V-tach; several paroxysms of SVT longest 22 beats @ 177bpm --01/05/19 Echo: LV normal, EF 55-60%; RV normal; mild TR --repeat echo ordered --seen and evaluated by cardiology Hypertension --BP low --d/c amlodipine --continue Toprol XL 25mg daily with uptitration as needed Hypothyroidism --TSH pending --continue levothyroxine Pyuria --symptomatic --ceftriaxone --culture pending FEN Fluids: PO intake adequate Electrolytes: replete as indicated Nutrition: low sodium DVT prophylaxis: subq heparin Physical therapy Dispo: continues to require inpatient care. Full code. Visit type - Emergency Visit Emergency Visit: Yes ED Registration Date: 05/21/19 Care time: The patient presented to the Emergency Department on the above date and was hospitalized for further evaluation of their emergent condition. - New Patient This patient is new to me today: Yes Date on this admission: 05/22/19 - Critical Care Critical Care patient: No
[2019-05-22] MEDS: CEFTRIAXONE 1 G/50 ML PREMIX 50 ML IVPB SCH (09:23)
[2019-05-22] MEDS: PANTOPRAZOLE 40 MG TABLET (FP) PO SCH (09:24)
[2019-05-22] MEDS: HEPARIN NA (PORCINE) 5,000 UNITS/ML 1ML VIAL SQ SCH ×2 (09:24→21:40)
[2019-05-22] MEDS: AZITHROMYCIN IVPB 500 MG/250 ML BAG IVPB SCH (09:25)
--- NOTE | 2019-05-22 09:39 | EKG ---
Test Reason : Blood Pressure : / mmHG Vent. Rate : 095 BPM Atrial Rate : 095 BPM P-R Int : 152 ms QRS Dur : 092 ms QT Int : 368 ms P-R-T Axes : 051 -64 012 degrees QTc Int : 462 ms SINUS RHYTHM WITH PREMATURE ATRIAL COMPLEXES WITH ABERRANT CONDUCTION LEFT AXIS DEVIATION ABNORMAL ECG WHEN COMPARED WITH ECG OF 08-MAY-2018 11:41, NO SIGNIFICANT CHANGE WAS FOUND Confirmed by NU CARRILLO, MADHAV ([id number]) on 05/22/2019 9:39:38 AM Referred By: Confirmed By:MADHAV JUDGE MD
--- NOTE | 2019-05-22 09:53 | CON.CARD ---
Consult Consult Specialty:: Cardiology Referred by:: Hospitalist Medicine Reason for Consultation:: Right-sided chest pain - History of Present Illness Chief Complaint: Right-sided chest pain History of Present Illness: 68 year old woman h/o HTN, COPD on occ home O2, pulm nodules, pulm fibrosis, s/ p nephrectomy presented with 3 days of R sided chest pain and worsening SOB. The patient states her SOB is worsened when lying down and reproducible, similar presentation 04/2019. Also c/o dysuria, frequency. Only wears oxygen sometimes, sleeps with 2 pillows at baseline. ER course was notable for: (1) cxr (2) ceftriaxone (3) azithromycin - History Source History Provided By: Patient Limitations to Obtaining History: No Limitations - Past Medical History Cardio/Vascular: Yes: AFIB, CHF, HTN Pulmonary: Yes: COPD, O2 Dependent, Pulmonary Fibrosis, Other ...: No Musculoskeletal: Yes: Osteoarthritis - Alcohol/Substance Use Hx Alcohol Use: No History of Substance Use: reports: None - Smoking History Smoking history: Never smoked Have you smoked in the past 12 months: No Aproximately how many cigarettes per day: 0 - Social History ADL: Independent History of Recent Travel: No Home Medications - Allergies Allergies/Adverse Reactions: Allergies Allergy/AdvReac Type Severity Reaction Status Date / Time peach Allergy Severe Difficulty Verified 05/21/19 20:17 Breathing peaches Allergy Severe Difficulty Uncoded 10/01/18 08:14 Breathing - Home Medications Home Medications: Ambulatory Orders Levothyroxine [Synthroid -] 88 mcg PO DAILY 08/10/12 Montelukast Na [Singulair -] 10 mg PO HS 08/10/12 Amlodipine Besylate [Norvasc -] 5 mg PO HS 05/08/18 Cetirizine HCl [Zyrtec -] 10 mg PO DAILY PRN 05/08/18 Dexlansoprazole [Dexilant] 60 mg PO DAILY 05/08/18 Gabapentin 600 mg PO HS 05/08/18 Meclizine HCl [Antivert -] 25 mg PO TID PRN 05/08/18 Acetaminophen [Tylenol .Regular Strength -] 650 mg PO Q4H PRN tablet 05/10/18 Albuterol 0.083% Nebulizer Lisa [Ventolin 0.083% Nebulizer Soln -] 1 amp NEB Q6H PRN #120 amp 05/10/18 Docusate Sodium [Colace -] 100 mg PO Q8H PRN #0 capsule 05/10/18 Metoprolol Succinate [Toprol Xl] 25 mg PO HS 05/21/19 Zolpidem Tartrate [Ambien] 10 mg PO HS 05/21/19 Vital Signs: Vital Signs Temperature 98.7 F 05/22/19 09:16 Pulse Rate 64 05/22/19 09:16 Respiratory Rate 18 05/22/19 09:16 Blood Pressure 94/47 L 05/22/19 09:16 O2 Sat by Pulse Oximetry (%) 95 05/22/19 09:16 Constitutional: Yes: No Distress, Calm Neck: Yes: Supple Respiratory: Yes: Regular, Diminished, On Nasal O2 Gastrointestinal: Yes: Soft, Hypoactive Bowel Sounds Cardiovascular: Yes: Regular Rate and Rhythm JVD: No Carotid Bruit: No Heart Sounds: Yes: S1, S2 Murmur: Yes: Systolic Murmur, Grade 1 Edema: No - Other Data Labs, Other Data: CBC, BMP 05/21/19 16:30 05/21/19 16:30 INR, PTT INR 1.30 (0.82-1.09) H 05/21/19 16:30 Troponin, BNP 05/21/19 05/21/19 05/22/19 16:30 16:30 00:00 Troponin I < 0.03 Cancelled B-Natriuretic Peptide 508.2 H 05/22/19 00:00 Troponin I < 0.02 B-Natriuretic Peptide Troponin, BNP 05/21/19 05/21/19 05/22/19 16:30 16:30 00:00 Troponin I < 0.03 Cancelled B-Natriuretic Peptide 508.2 H 05/22/19 00:00 Troponin I < 0.02 B-Natriuretic Peptide Problem List - Problems (1) COPD (chronic obstructive pulmonary disease) Code(s): J44.9 - CHRONIC OBSTRUCTIVE PULMONARY DISEASE, UNSPECIFIED Qualifiers: COPD type: unspecified COPD Qualified Code(s): J44.9 - Chronic obstructive pulmonary disease, unspecified (2) UTI (urinary tract infection) Code(s): N39.0 - URINARY TRACT INFECTION, SITE NOT SPECIFIED (3) Chest pain Code(s): R07.9 - CHEST PAIN, UNSPECIFIED Qualifiers: Chest pain type: unspecified Qualified Code(s): R07.9 - Chest pain, unspecified (4) Community acquired pneumonia Code(s): J18.9 - PNEUMONIA, UNSPECIFIED ORGANISM Qualifiers: Laterality: right Lung location: middle lobe of lung Qualified Code(s): J18.1 - Lobar pneumonia, unspecified organism (5) Hypertension Code(s): I10 - ESSENTIAL (PRIMARY) HYPERTENSION Qualifiers: Hypertension type: essential hypertension Qualified Code(s): I10 - Essential (primary) hypertension (6) Hypothyroidism Code(s): E03.9 - HYPOTHYROIDISM, UNSPECIFIED Qualifiers: Hypothyroidism type: unspecified Qualified Code(s): E03.9 - Hypothyroidism , unspecified (7) IPF (idiopathic pulmonary fibrosis) Code(s): J84.112 - IDIOPATHIC PULMONARY FIBROSIS Assessment/Plan 01/05/2019 Echo Normal biventricular size and fxn, mild TR 01/05/2019 Holter: Multiple NSVT, longest 3 sec, PSVT longest 22 beats @ 177 bpm CXR RUL infiltrate ekg -SR LAD freq PVC CTA appeared to have right mid lung infiltrate 1. Atypical chest pain with underlying 2. Pulm fibrosis, pulm nodules, COPD on home O2, RUL PNA 3. R/o UTI 4. NSVT, PSVT 5. Hypothyroidism 6. HTN P:1. BD, O2 as needed, Singulair, empiric abx course per C&S, f/u formal chest CT report 2. Ruled out PA, check repeat echo already ordered, check TSH 3. D/c Norvasc, continue Toprol XL 25 qd with uptitration as tolerated 4. Thank you for consultative opportunity, patient sees Dr. Charisse Lewis for cardiology at Dr. Eloisa Miller office.
[2019-05-22] MEDS ORDERED: AZITHROMYCIN IVPB 500 MG in DEXTROSE 5%-WATER - 250 ML IVPB SCH (10:00)
[2019-05-22] MEDS ORDERED: metoPROLOL SUCCINATE 25 MG TAB.SR.24H (FP) PO SCH (10:00)
[2019-05-22] MEDS ORDERED: PATIENT'S OWN MEDICATION (NON-FORMULARY) (Mirabegron [Myrbetriq] 50 MG) PO SCH (10:00)
[2019-05-22] MEDS ORDERED: amLODIPine BESYLATE 5 MG TABLET (FP) PO SCH (10:00)
[2019-05-22 10:54] LABS: HEMATOCRIT 33.5 % (32.4-45.2); HEMOGLOBIN 10.6 GM/dl (10.7-15.3); MCH 26.5 pg (25.7-33.7); MCHC 31.8 g/dl (32.0-36.0); MEAN CELL VOLUME 83.6 fl (80-96); MEAN PLT VOLUME 9.2 fl (7.5-11.1); PLATELET COUNT 226 K/MM3 (134-434); RBC 4.01 M/mm3 (3.60-5.2); WHITE BLOOD COUNT 7.5 K/mm3 (4.0-10.8)
[2019-05-22 11:13] LABS: CALCIUM 8.2 mg/dl (8.5-10); CREATININE 0.9 mg/dl (0.55-1.3); POTASSIUM 4.6 mmol/L (3.5-5.1)
--- NOTE | 2019-05-22 16:02 | ECHO ---
Name: ALIYAH ERNST Exam:Adult Echocardiogram Study Date: 05/22/2019 11:56 AM Age: 68 yrs Reason For Study: CHF Height: 62 in Weight: 192 lb BSA: 1.9 m2 MMode/2D Measurements & Calculations IVSd: 0.94 cm Ao root diam: 2.7 cm LVIDd: 4.6 cm LA dimension: 3.7 cm LVIDs: 2.9 cm LVPWd: 0.93 cm EDV(Teich): 96.4 ml LVOT diam: 2.1 cm ESV(Teich): 32.3 ml Doppler Measurements & Calculations MV E max matt: 69.9 cm/sec Ao V2 max: 165.0 cm/sec MV A max matt: 84.0 cm/sec Ao max P.9 mmHg MV E/A: 0.83 Ao V2 mean: 122.0 cm/sec Ao mean P.4 mmHg Ao V2 VTI: 37.9 cm GALDINO(I,D): 2.2 cm2 GALDINO(V,D): 2.4 cm2 LV V1 max P.6 mmHg SV(LVOT): 85.2 ml LV V1 mean P.4 mmHg LV V1 max: 118.0 cm/sec LV V1 mean: 88.4 cm/sec LV V1 VTI: 25.1 cm TR max matt: 305.7 cm/sec TR max P.4 mmHg Procedure A complete two-dimensional transthoracic echocardiogram was performed (2D, M-mode, Doppler and color flow Doppler). Left Ventricle The left ventricle is normal in size. Left ventricular systolic function is normal. Ejection Fraction = 60- 65%. No regional wall motion abnormalities noted. Right Ventricle The right ventricle is normal size. The right ventricular systolic function is normal. RV systolic TD I is 13 cm/s. Atria The left atrial size is normal. Right atrial size is normal. Mitral Valve The mitral valve is normal in structure and function. There is trace mitral regurgitation. Tricuspid Valve The tricuspid valve is normal in structure and function. There is mild to moderate tricuspid regurgit ation. Pulmonary artery systolic pressure is at least 39 mmHg if RA pressure is assumed 3 mmHg. Aortic Valve There is mild aortic sclerosis.;. Trace to mild aortic regurgitation. Pulmonic Valve The pulmonic valve is not well visualized. Mild pulmonic valvular regurgitation. Great Vessels The aortic root is normal size. Pericardium/Pleura There is no pericardial effusion. Interpretation Summary The left ventricle is normal in size. Left ventricular systolic function is normal. No regional wall motion abnormalities noted. Ejection Fraction = 60-65%. The right ventricular systolic function is normal. The left atrial size is normal. Right atrial size is normal. There is trace mitral regurgitation. There is mild to moderate tricuspid regurgitation. Pulmonary artery systolic pressure is at least 39 mmHg if RA pressure is assumed 3 mmHg There is mild aortic sclerosis. Aortic valve is nodular and calcific Trace to mild aortic regurgitation. Mild pulmonic valvular regurgitation. There is no pericardial effusion. Keith Carranza MD 05/22/2019 04:02 PM
[2019-05-22] MEDS: ALBUTEROL SO4 0.083% IH SOL 2.5 MG/3 ML VIAL.NEB. NEB SCH ×2 (17:43→21:39)
[2019-05-22] MEDS: MONTELUKAST NA 10 MG TABLET PO SCH (21:39)
[2019-05-22] MEDS: GABAPENTIN 300 MG CAPSULE (FP) PO SCH (21:39)
[2019-05-22] MEDS: metoPROLOL SUCCINATE 25 MG TAB.SR.24H (FP) PO SCH (21:39)
[2019-05-22] MEDS: amLODIPine BESYLATE 5 MG TABLET (FP) PO SCH (21:40)
[2019-05-23] MEDS: LEVOTHYROXINE NA 88 MCG TABLET (FP) PO SCH (06:05)
[2019-05-23 08:19] LABS: BASO % 0.7 % (0-2.0); EOS % 3.8 % (0-4.5); HEMATOCRIT 34.2 % (32.4-45.2); HEMOGLOBIN 10.9 GM/dl (10.7-15.3); LYMPH % 31.9 % (8-40); MCH 26.6 pg (25.7-33.7); MCHC 31.9 g/dl (32.0-36.0); MEAN CELL VOLUME 83.4 fl (80-96); MEAN PLT VOLUME 9.2 fl (7.5-11.1); MONO % 9.3 % (3.8-10.2); NEUT % 54.3 % (42.8-82.8); PLATELET COUNT 221 K/MM3 (134-434)
[2019-05-23 08:30] LABS: ALBUMIN 2.5 g/dl (3.4-5.0); BILIRUBIN,TOTAL 0.8 mg/dl (0.2-1); CREATININE 0.8 mg/dl (0.55-1.3); POTASSIUM 4.3 mmol/L (3.5-5.1); TOT PROT 5.8 g/dl (6.4-8.2)
[2019-05-23] MEDS: PANTOPRAZOLE 40 MG TABLET (FP) PO SCH (09:36)
[2019-05-23] MEDS: HEPARIN NA (PORCINE) 5,000 UNITS/ML 1ML VIAL SQ SCH ×2 (09:36→21:32)
[2019-05-23] MEDS: ALBUTEROL SO4 0.083% IH SOL 2.5 MG/3 ML VIAL.NEB. NEB SCH (09:36)
[2019-05-23] MEDS: CEFTRIAXONE 1 G/50 ML PREMIX 50 ML IVPB SCH (09:36)
[2019-05-23] MEDS: AZITHROMYCIN IVPB 500 MG/250 ML BAG IVPB SCH (09:37)
--- NOTE | 2019-05-23 10:07 | PN ---
Progress Note (short form) - Note Progress Note: PULMONARY CONSULTATION DICTATED 05/23/19 IMP CHRONIC HYPOXEMIC RESPIRATORY FAILURE ADVANCED ILD CHEST PAIN RUL CONSOLIDATION LISSETTE GERD H/O R NEPHRECTOMY PULMONARY HTN HTN GERD PLAN ABX STEROIDS INHALED BRONCHODILATORS CULTURES SUPPLEMENTAL O2 F/U CHEST CT 4-6 WKS TO CONFIRM RESOLUTION OF INFILTRATES DR LAUGHLIN Problem List - Problems (1) IPF (idiopathic pulmonary fibrosis) Code(s): J84.112 - IDIOPATHIC PULMONARY FIBROSIS (2) Chronic hypoxemic respiratory failure Code(s): J96.11 - CHRONIC RESPIRATORY FAILURE WITH HYPOXIA (3) Pneumonia Code(s): J18.9 - PNEUMONIA, UNSPECIFIED ORGANISM (4) UTI (urinary tract infection) Code(s): N39.0 - URINARY TRACT INFECTION, SITE NOT SPECIFIED (5) Community acquired pneumonia Code(s): J18.9 - PNEUMONIA, UNSPECIFIED ORGANISM Qualifiers: Laterality: right Lung location: middle lobe of lung Qualified Code(s): J18.1 - Lobar pneumonia, unspecified organism (6) Hypertension Code(s): I10 - ESSENTIAL (PRIMARY) HYPERTENSION Qualifiers: Hypertension type: essential hypertension Qualified Code(s): I10 - Essential (primary) hypertension (7) Hypothyroidism Code(s): E03.9 - HYPOTHYROIDISM, UNSPECIFIED Qualifiers: Hypothyroidism type: unspecified Qualified Code(s): E03.9 - Hypothyroidism , unspecified (8) Hypoxia Code(s): R09.02 - HYPOXEMIA
[2019-05-23] MEDS ORDERED: ALBUTEROL SO4 0.083% IH SOL 2.5 MG/3 ML VIAL.NEB. NEB PRN (10:17)
--- NOTE | 2019-05-23 11:19 | CONS ---
DATE OF CONSULTATION: 05/23/2019 REFERRING PHYSICIAN: NIKOLAS Benz HISTORY OF PRESENT ILLNESS: Patient is a 68-year-old female with a past medical history of interstitial lung disease on home O2, history of asthma, pulmonary nodules, history of right nephrectomy, osteoarthritis, obstructive sleep apnea, not complaint with CPAP, pulmonary hypertension, nonsmoker, heart murmur, admitted to [facility] with a 3-day history of right-sided chest pain, increasing shortness of breath. Patient states that the shortness of breath gets worse with lying down and she also complained of dysuria and frequency. She also complains of a cough, nonproductive. She was admitted with the above. On admission, she underwent a CT scan of the chest, which revealed a new right upper lobe consolidation, as well as chronic infiltrates bilaterally and the new left upper lobe nodular density. Patient was admitted. She was possible community-acquired pneumonia. She was started on broad spectrum antibiotics. As stated before, she has a history of interstitial lung disease not biopsy proven. She has responded to steroids in the past. Patient complains of shortness of breath with exertion only. She denies any hemoptysis. She denies any weight loss, or night sweats. There is no history of occupational exposure to chemicals or fumes. There is no history of recent travel. There is no DVT or pulmonary emboli in the past. PAST MEDICAL HISTORY: Again includes interstitial lung disease, O2 dependent, pulmonary nodular densities, history of right nephrectomy, GERD, hypertension, heart murmur, osteoarthritis. REVIEW OF SYSTEMS: Positive orthopnea. Positive dyspnea. Positive dry cough. Positive chest pain. No fever, no chills, no hemoptysis, no abdominal pain. MEDICATIONS: Current medications include Myrbetriq, Tylenol, Zithromax, heparin, Neurontin, Antivert, metoprolol, Colace, ceftriaxone, amlodipine, Singulair, Protonix, Claritin and Synthroid. PHYSICAL EXAMINATION: General: On physical examination, patient is a well-developed, well-nourished female wake, alert, in no acute distress. Vitals: She was afebrile. Blood pressure is 102/52, respiratory rate is 20, O2 saturation is 98% on 2 L. HEENT: Normocephalic, atraumatic. Neck: Supple. Heart: Regular, S1, S2. Chest: Scattered bilateral wheezes. Abdomen: Soft. Bowel sounds are positive. Extremitiies: No cyanosis, edema. LABORATORY STUDIES: WBC is 7, hemoglobin 10.9, hematocrit 34.2 with a platelet count 222,000. Blood gas: pH 7.33, pCO2 44, pO2 40, bicarbonate 22 and saturation is 62. BUN 9, creatinine 0.8. Echo: Abnormal left ventricular systolic function and ejection fraction 60% to 65%. Pulmonary artery pressure 39 mmHg. Mild aortic sclerosis. Chest CT: New right upper lobe consolidation and changes bilaterally. Spiculated lesion in the left upper lobe, which is new and bronchiectatic changes bilaterally. IMPRESSION: 1. Chronic hypoxemic respiratory failure, secondary to advanced interstitial lung disease. 2. Chest pain syndrome, likely secondary to pneumonia. 3. Right upper lobe consolidation, likely pneumonia. 4. Obstructive sleep apnea. 5. Gastroesophageal reflux disease. 6. History of right nephrectomy. 7. Pulmonary hypertension. 8. Hypertension. SUGGEST: Continue antibiotic therapy, steroids, inhaled bronchodilators, cultures, supplemental O2, obtain follow up chest CT in 4 to 6 weeks from the resolution of infiltrates. ADEN LAUGHLIN M.D. [id number]
[2019-05-23] MEDS: methylPREDNISolone NA SUCC 40 MG/1 ML VIAL IVPUSH SCH ×2 (11:35→18:02)
[2019-05-23] MEDS: ALBUTEROL SO4 2.5/IPRATROPIUM 0.5 INH SOL 3 ML VIAL.NEB. NEB SCH ×3 (11:36→21:32)
--- NOTE | 2019-05-23 14:00 | PN ---
Physical Exam: SUBJECTIVE: Patient seen and examined at bedside. "I feel perfect." Feels ready to go home tomorrow. OBJECTIVE: Vital Signs Period Temp Pulse Resp BP Sys/Cook Pulse Ox Last 24 Hr 98.6 F-99.8 F 61-78 18-20 97-120/52-81 89-98 GENERAL: The patient is awake, alert, and fully oriented, in no acute distress. LUNGS: RML and RLL crackles unchanged; no wheezing, no accessory muscle use HEART: Regular rate and rhythm, S1, S2 ABDOMEN: Soft, nontender, nondistended EXTREMITIES: 2+ pulses, warm, well-perfused, no edema. NEUROLOGICAL: Cranial nerves II through XII grossly intact. Normal speech, steady gait Laboratory Results - last 24 hr 05/22/19 05/23/19 05/23/19 09:50 07:30 07:30 WBC 7.0 RBC 4.10 Hgb 10.9 Hct 34.2 MCV 83.4 MCH 26.6 MCHC 31.9 L RDW 16.0 H Plt Count 221 MPV 9.2 Absolute Neuts (auto) 3.9 Neutrophils % 54.3 Lymphocytes % 31.9 Monocytes % 9.3 Eosinophils % 3.8 Basophils % 0.7 Sodium 137 Potassium 4.3 Chloride 110 H Carbon Dioxide 22 Anion Gap 5 L BUN 9.0 Creatinine 0.8 Est GFR (CKD-EPI)AfAm 88.42 Est GFR (CKD-EPI)NonAf 76.29 Random Glucose 94 Calcium 8.0 L Magnesium 2.0 Total Bilirubin 0.8 AST 20 ALT 11 L Alkaline Phosphatase 72 D Total Protein 5.8 L Albumin 2.5 L TSH 0.52 Active Medications Generic Name Dose Route Start Last Admin Trade Name Freq PRN Reason Stop Dose Admin Acetaminophen 650 mg 05/22/19 00:08 05/22/19 21:44 Tylenol - PO 650 mg Q6H PRN Administration FEVER Albuterol Sulfate 1 amp 05/23/19 10:17 Ventolin 0.083% Nebulizer Soln - NEB Q4H PRN SHORT OF BREATH/WHEEZING Albuterol/Ipratropium 1 amp 05/23/19 12:00 05/23/19 11:36 Duoneb - NEB 1 amp RQID MARIA DEL CARMEN Administration Amlodipine Besylate 5 mg 05/21/19 23:00 05/22/19 21:40 Norvasc - PO 5 mg HS MARIA DEL CARMEN Administration Docusate Sodium 100 mg 05/21/19 18:38 Colace - PO Q8H PRN CONSTIPATION Gabapentin 600 mg 05/21/19 22:36 05/22/19 21:39 Neurontin - PO 600 mg HS MARIA DEL CARMEN Administration Heparin Sodium (Porcine) 5,000 unit 05/21/19 22:00 05/23/19 09:36 Heparin - SQ 5,000 unit BID MARIA DEL CARMEN Administration Azithromycin 500 mg in 250 mls @ 250 mls/hr 05/22/19 10:00 05/23/19 09:37 Zithromax 500mg Ivpb (Pre-Docked) IVPB 250 mls/hr DAILY MARIA DEL CARMEN Administration Ceftriaxone Sodium 50 mls @ 100 mls/hr 05/22/19 10:00 05/23/19 09:36 Ceftriaxone 1 Gm-D5w Bag IVPB 100 mls/hr DAILY MARIA DEL CARMEN Administration Levothyroxine Sodium 88 mcg 05/22/19 07:00 05/23/19 06:05 Synthroid - PO 88 mcg DAILY@0700 MARIA DEL CARMEN Administration Loratadine 10 mg 05/21/19 18:38 Claritin - PO DAILY PRN NASAL CONGESTION Meclizine HCl 25 mg 05/21/19 18:38 05/22/19 06:08 Antivert - PO 25 mg TID PRN Administration VERTIGO Methylprednisolone Sodium Succinate 40 mg 05/23/19 10:30 05/23/19 11:35 Solu-Medrol - IVPUSH 40 mg Q8H-IV MARIA DEL CARMEN Administration Metoprolol Succinate 25 mg 05/21/19 22:45 05/22/19 21:39 Toprol Xl - PO 25 mg HS MARIA DEL CARMEN Administration Montelukast Sodium 10 mg 05/21/19 22:00 05/22/19 21:39 Singulair - PO 10 mg HS MARIA DEL CARMEN Administration Non-Formulary Medication 50 mg 05/22/19 10:00 Mirabegron [Myrbetriq] PO DAILY MARIA DEL CARMEN Pantoprazole Sodium 40 mg 05/22/19 10:00 05/23/19 09:36 Protonix - PO 40 mg DAILY MARIA DEL CARMEN Administration PCP: Angela Medical Doctor: Tammi Cardioogy: Jose Angel Stephenson ASSESSMENT/PLAN: 68 year-old female with a PMH significant for HTN, asthma, hypothyroidism, asthma, ILD on home O2, h/o spiculated pulmonary nodules, s/p nephrectomy (2007) . Admitted for acute on chronic respiratory failure, possible CAP, and UTI. Shortness of breath Acute on chronic hypoxic respiratory failure secondary to advanced ILD Asthma Spiculated lung nodules --05/22 CTA: RUL consolidate and new spiculated nodules --continue ceftriaxone (day #3) and azithro (day #3) --IV steroids --daily bedside peakflow --repeat pre post in am --pulmonary following Right-sided chest pain h/o NSVT, PSVT --troponins negative x 3; TSH wnl --01/05/19 Holter monitor: multiple episodes non-sustained V-tach; several paroxysms of SVT longest 22 beats @ 177bpm --01/05/19 Echo: LV normal, EF 55-60%; RV normal; mild TR --05/22 Echo: LV normal EF 60-65%; RV normal; trace MR; mild to moderate TR; pHTN; trace to mild AI; mild PI --seen and evaluated by cardiology Hypertension --BP low to normotensive --d/c'd amlodipine --continue Toprol XL 25mg daily with uptitration as needed Hypothyroidism --TSH wnl --continue levothyroxine Pyuria --symptomatic --culture normal tree --on ceftriaxone as above s/p Right nephrectomy --renal function stable LISSETTE --noncompliant with CPAP at home FEN Fluids: PO intake adequate Electrolytes: replete as indicated Nutrition: low sodium DVT prophylaxis: subq heparin Physical therapy Dispo: continues to require inpatient care. Full code. Visit type - Emergency Visit Emergency Visit: Yes ED Registration Date: 05/21/19 Care time: The patient presented to the Emergency Department on the above date and was hospitalized for further evaluation of their emergent condition. - New Patient This patient is new to me today: No - Critical Care Critical Care patient: No
[2019-05-23] MEDS: MONTELUKAST NA 10 MG TABLET PO SCH (21:31)
[2019-05-23] MEDS: metoPROLOL SUCCINATE 25 MG TAB.SR.24H (FP) PO SCH (21:31)
[2019-05-23] MEDS: amLODIPine BESYLATE 5 MG TABLET (FP) PO SCH (21:31)
[2019-05-23] MEDS: GABAPENTIN 300 MG CAPSULE (FP) PO SCH (21:31)
[2019-05-24] MEDS: methylPREDNISolone NA SUCC 40 MG/1 ML VIAL IVPUSH SCH ×2 (02:00→09:34)
[2019-05-24 05:21] VITALS: BP 105/63; PULSE 65; TEMP 98.4
[2019-05-24] MEDS: LEVOTHYROXINE NA 88 MCG TABLET (FP) PO SCH (06:44)
[2019-05-24] MEDS: ALBUTEROL SO4 2.5/IPRATROPIUM 0.5 INH SOL 3 ML VIAL.NEB. NEB SCH (08:53)
[2019-05-24] MEDS: AZITHROMYCIN IVPB 500 MG/250 ML BAG IVPB SCH (09:34)
[2019-05-24] MEDS: CEFTRIAXONE 1 G/50 ML PREMIX 50 ML IVPB SCH (09:34)
[2019-05-24] MEDS: HEPARIN NA (PORCINE) 5,000 UNITS/ML 1ML VIAL SQ SCH (09:34)
[2019-05-24] MEDS: PANTOPRAZOLE 40 MG TABLET (FP) PO SCH (09:35)
--- NOTE | 2019-05-24 11:24 | DS ---
Physical Exam: SUBJECTIVE: Patient seen and examined. Continues to feel well, would like to go home. OBJECTIVE: Vital Signs Period Temp Pulse Resp BP Sys/Cook Pulse Ox Last 24 Hr 97.5 F-99.4 F 65-78 16-18 105-132/63-81 90-96 PHYSICAL EXAM GENERAL: The patient is awake, alert, and fully oriented, in no acute distress. LUNGS: RML and RLL crackles unchanged; no wheezing, no accessory muscle use HEART: Regular rate and rhythm, S1, S2 ABDOMEN: Soft, nontender, nondistended EXTREMITIES: 2+ pulses, warm, well-perfused, no edema. NEUROLOGICAL: Cranial nerves II through XII grossly intact. Normal speech, steady gait LABS CBCD WBC 7.0 K/mm3 (4.0-10.8) 05/23/19 07:30 RBC 4.10 M/mm3 (3.60-5.2) 05/23/19 07:30 Hgb 10.9 GM/dl (10.7-15.3) 05/23/19 07:30 Hct 34.2 % (32.4-45.2) 05/23/19 07:30 MCV 83.4 fl (80-96) 05/23/19 07:30 MCHC 31.9 g/dl (32.0-36.0) L 05/23/19 07:30 RDW 16.0 % (11.6-15.6) H 05/23/19 07:30 Plt Count 221 K/MM3 (134-434) 05/23/19 07:30 MPV 9.2 fl (7.5-11.1) 05/23/19 07:30 CMP Sodium 137 mmol/L (136-145) 05/23/19 07:30 Potassium 4.3 mmol/L (3.5-5.1) 05/23/19 07:30 Chloride 110 mmol/L (98-107) H 05/23/19 07:30 Carbon Dioxide 22 mmol/L (21-32) 05/23/19 07:30 Anion Gap 5 MMOL/L (8-16) L 05/23/19 07:30 BUN 9.0 mg/dl (7-18) 05/23/19 07:30 Creatinine 0.8 mg/dl (0.55-1.3) 05/23/19 07:30 Calcium 8.0 mg/dl (8.5-10) L 05/23/19 07:30 Total Bilirubin 0.8 mg/dl (0.2-1) 05/23/19 07:30 AST 20 U/L (15-37) 05/23/19 07:30 ALT 11 U/L (13-61) L 05/23/19 07:30 Alkaline Phosphatase 72 U/L (45-117) D 05/23/19 07:30 Total Protein 5.8 g/dl (6.4-8.2) L 05/23/19 07:30 Albumin 2.5 g/dl (3.4-5.0) L 05/23/19 07:30 HOSPITAL COURSE: Date of Admission:05/21/19 Date of Discharge: 05/24/19 Pre-hospital course 68 year-old female with a PMH significant for HTN, asthma, hypothyroidism, asthma, ILD on home O2, h/o spiculated pulmonary nodules, s/p nephrectomy (2007) . Admitted for acute on chronic respiratory failure and chest pain. Acute on chronic hypoxic respiratory failure secondary to advanced ILD Spiculated lung nodules --O2 dependent at home --05/22 CTA: RUL consolidate and new spiculated nodules --treated with ceftriaxone x 4 doses, and azithro x 4 doses --treated with IV steroids, discharged on PO taper --follows regularly with pulmonary group Atypical chest pain h/o NSVT, PSVT --troponins negative x 3, ACS ruled out --05/22 Echo: LV normal EF 60-65%; RV normal; trace MR; mild to moderate TR; pHTN; trace to mild AI; mild PI --seen and evaluated by cardiology, discontinued amlodipine and continued Toprol XL 25mg daily --follows regularly with resort keeper Dr. Charisse Lewis Hypertension --continued Toprol XL Hypothyroidism --TSH wnl --continued levothyroxine Pyuria --symptomatic --culture showed normal tree --treated empirically with ceftriaxone s/p Right nephrectomy --renal function was stable LISSETTE --noncompliant with CPAP at home Minutes to complete discharge: 35 Discharge Summary Reason For Visit: CHEST PAIN, PNEUMONIA Current Active Problems COPD (chronic obstructive pulmonary disease) (Acute) Chronic hypoxemic respiratory failure (Acute) Pneumonia (Acute) UTI (urinary tract infection) (Acute) Condition: Improved - Instructions Diet, Activity, Other Instructions: Two prescriptions have been sent to your pharmacy. One is for augmentin which is an antibiotic, and one is for prednisone. Take these medications as directed and be sure to finish all the medication. You should follow up with Dr. Ferreira 1-2 weeks after your discharge. Return to the emergency department for any new or worsening symptoms. Referrals: Greg Ferreira MD [Staff Physician] - Disposition: HOME - Home Medications Comprehensive Discharge Medication List: Ambulatory Orders Levothyroxine [Synthroid -] 88 mcg PO DAILY 08/10/12 Montelukast Na [Singulair -] 10 mg PO HS 08/10/12 Amlodipine Besylate [Norvasc -] 5 mg PO HS 05/08/18 Cetirizine HCl [Zyrtec -] 10 mg PO DAILY PRN 05/08/18 Dexlansoprazole [Dexilant] 60 mg PO DAILY 05/08/18 Gabapentin 600 mg PO HS 05/08/18 Meclizine HCl [Antivert -] 25 mg PO TID PRN 05/08/18 Acetaminophen [Tylenol .Regular Strength -] 650 mg PO Q4H PRN tablet 05/10/18 Albuterol 0.083% Nebulizer Lisa [Ventolin 0.083% Nebulizer Soln -] 1 amp NEB Q6H PRN #120 amp 05/10/18 Docusate Sodium [Colace -] 100 mg PO Q8H PRN #0 capsule 05/10/18 Metoprolol Succinate [Toprol Xl] 25 mg PO HS 05/21/19 Zolpidem Tartrate [Ambien] 10 mg PO HS 05/21/19 This patient is new to me today: No Emergency Visit: Yes ED Registration Date: 05/21/19 Care time: The patient presented to the Emergency Department on the above date and was hospitalized for further evaluation of their emergent condition. Critical Care patient: No - Discharge Referral Referred to [facility] Med [facility] No
== END 2019-05-24 13:02 | disposition home or self-care (01) | DRG 196 ==
LOC: FER 15:46 → FM/S 17:49
PROVIDERS: ADMIT Internal Medicine; ATTEND Nurse Practitioner Acute Care
DX: J84.9 Interstitial pulmonary disease, unspecified (principal); J96.01 Acute respiratory failure with hypoxia; N39.0 Urinary tract infection, site not specified; I11.0 Hypertensive heart disease with heart failure; I50.9 Heart failure, unspecified; J44.9 Chronic obstructive pulmonary disease, unspecified; J84.10 Pulmonary fibrosis, unspecified; Z99.81 Dependence on supplemental oxygen; K21.9 Gastro-esophageal reflux disease without esophagitis; B19.20 Unspecified viral hepatitis C without hepatic coma; Z98.84 Bariatric surgery status; E03.9 Hypothyroidism, unspecified; I48.91 Unspecified atrial fibrillation; M19.90 Unspecified osteoarthritis, unspecified site; R07.89 Other chest pain; R91.8 Other nonspecific abnormal finding of lung field; Z90.5 Acquired absence of kidney; G47.33 Obstructive sleep apnea (adult) (pediatric); Z91.19 Patient's noncompliance with other medical treatment and regimen
CPT/HCPCS: 36415; 71045-TC-FY; 71275-TC; 80048; 80053; 81003; 81015; 82803; 83605; 83735; 83880; 84443; 84484; 85025; 85027; 85610; 85730; 87040; 87086; 87899; 93005; 93306-TC; 94640; 97116-GP; 97161-GP; 99284-25; J1644; J7030

== ENCOUNTER 2021-05-15 07:19 | Emergency (ER) | payer OTHER ==
[2021-05-15 07:29] VITALS: BMI 38.0
[2021-05-15 12:27] VITALS: BP 133/78; PULSE 58; TEMP 98.1
== END 2021-05-15 12:28 | disposition home or self-care (01) ==
LOC: FER 07:19
DX: R91.1 Solitary pulmonary nodule (principal); S13.4XXA Sprain of ligaments of cervical spine, initial encounter; S43.401A Unspecified sprain of right shoulder joint, initial encounter; S80.01XA Contusion of right knee, initial encounter
CPT/HCPCS: 70450-TC; 72125-TC; 73030-TC-RT-FY; 99284-25

== ENCOUNTER 2023-02-13 14:43 | Emergency (ER) | payer OTHER ==
[2023-02-13 15:00] VITALS: BMI 36.2
[2023-02-13 17:03] VITALS: BP 127/86; PULSE 81; RESP 18; TEMP 98
== END 2023-02-13 17:03 | disposition home or self-care (01) ==
LOC: JER 14:43
DX: G89.18 Other acute postprocedural pain (principal); Z48.00 Encounter for change or removal of nonsurgical wound dressing
CPT/HCPCS: 99282-25

== ENCOUNTER 2023-11-19 09:59 | Emergency (ER) | payer OTHER ==
[2023-11-19 10:16] VITALS: BP 122/58; RESP 22; TEMP 99.8; BMI 35.8
[2023-11-19 10:47] VITALS: PULSE 86
[2023-11-19] MEDS ORDERED: ACETAMINOPHEN 325 MG TABLET (FP) PO ONE (12:11)
[2023-11-19] MEDS ORDERED: ACETAMINOPHEN 325 MG TABLET (FP) ONE (12:19)
== END 2023-11-19 12:25 | disposition home or self-care (01) ==
LOC: FER 09:59
DX: R05.9 Cough, unspecified (principal); R50.9 Fever, unspecified; R09.81 Nasal congestion; M79.10 Myalgia, unspecified site; J18.9 Pneumonia, unspecified organism; Z20.822 Contact with and (suspected) exposure to COVID-19
CPT/HCPCS: 0241U-QW; 71045-TC-FY; 99284-25